=== PATIENT | female | born 1965 | race Caucasian/White ===

== ENCOUNTER 2019-09-06 12:57 | Outpatient (REF) | payer BC, SELFPAY ==
--- NOTE | 2019-09-06 11:45 | PAPFT_PTH ---
PATIENT: Lisa Atkinson LOC: [facility]#:[id number] AGE/SX: 53/F ROOM: RE09/06/[address]: Sendy Linares : 1965 BED: DIS: 09/06/2019 SPEC #: [id number] RECD: 09/07/19 12:40 STATUS: CHRISTY RENohemi #: [id number] HARMONY: 09/06/19 11:[address]: Alejandrina Sherwood DEPT: [facility] Cytology RECD BY: Cookie Nelson Tissues: 1 - CX/ENDOCX FOR PAP SMEARS Procedures: PAP THIN PREP/UVM Screening HPV DNA PROBE Comments: [id number]
[2019-09-06 20:56] LABS: Hemoglobin A1C 5.8 % (3.8-5.6)
[2019-09-06 21:07] LABS: Calculated LDL 155 mg/dL (<100); Cholesterol 233 mg/dL (<200); HDL Cholesterol 69 mg/dL (40-60); TSH (W/Ref FT4) 1.57 uIU/mL (0.36-3.74); Triglyceride 48 mg/dL (<150)
[2019-09-08 10:57] LABS: Hepatitis C Ab w Rflx HCV PCR Negative (Negative)
== END 2019-09-06 13:17 ==
LOC: NCHCN 12:57
PROVIDERS: PCP Nurse Practitioner Family; Visit Provider Family Medicine
DX: Z12.4 Encounter for screening for malignant neoplasm of cervix (principal); Z01.419 Encounter for gynecological examination (general) (routine) without abnormal findings; Z11.51 Encounter for screening for human papillomavirus (HPV); Z00.00 Encounter for general adult medical examination without abnormal findings; R05 Cough; N95.1 Menopausal and female climacteric states; N39.490 Overflow incontinence; M54.5 Low back pain; R21 Rash and other nonspecific skin eruption; J30.1 Allergic rhinitis due to pollen; Z83.3 Family history of diabetes mellitus
CPT/HCPCS: 80061; 86803; 88142; 83036; 84443; 87624

== ENCOUNTER 2019-10-06 01:05 | Outpatient (CLI) | payer BC, SELFPAY ==
--- NOTE | 2019-10-06 11:45 | DI.MAMMO_ITS ---
EXAM: MG MAMMO SCREENING CLINICAL HISTORY: SCREENING, Z12.31 TECHNIQUE: Bilateral full field digital CC and MLO mammographic images were obtained with 3D tomosyn thesis and utilizing computer aided detection (CAD). COMPARISON: Available for comparison. FINDINGS: Masses/Architectural Distortion: None seen. Microcalcifications: No suspicious pleomorphic-type are seen. Skin Thickening/Nipple Retraction: None. IMPRESSION: 1. No significant interval change with no specific features of malignancy noted. 2. Unless there is more urgent need, screening mammography is recommended, as per [employer] guidelines. BI-RADS Cat 1 - Negative Breast Density - Category B - Scattered areas of fibroglandular density A negative radiographic report should not delay biopsy if a dominant or clinically suspicious mass is present. Up to ten percent of cancers are not identified on mammography. A negative report may reinforce clinical impression. Adenosis and dense breasts may obscure an underlying neoplasm. False positive reports average 6 to 10%. Patient will receive a letter notifying them of these results.
== END 2019-10-06 01:25 ==
PROVIDERS: PCP Nurse Practitioner Family; Visit Provider Nurse Practitioner Family
DX: Z12.31 Encounter for screening mammogram for malignant neoplasm of breast (principal)
CPT/HCPCS: 77063; 77067

== ENCOUNTER 2020-06-29 03:54 | Outpatient (CLI) | payer BC, SELFPAY ==
--- NOTE | 2020-06-29 06:45 | DI.US_ITS ---
EXAM: US PELVIS TRANSVAGINAL CLINICAL HISTORY: pelvic prolapse,CYSTOCELE,ENDOMETRIOSIS,N80.9,N81.2. TECHNIQUE: Transabdominal and transvaginal pelvic ultrasound was performed using standard protocol. COMPARISON: US PELVIS TRANSVAG from 07/09/2010 FINDINGS: KIDNEYS: Kidneys are symmetric in size. No evidence of renal calculi. No evidence of hydronephrosis. No renal mass or cyst identified. UTERUS: Position: Anteverted. Size: 5.6 long by 2.7 AP by 4.2 transverse cm Endometrium: 0.3 cm. Normal for patient's menstrual status. Myometrium: Unremarkable. Cervix: Unremarkable. OVARIES: Status post right oophorectomy. Left: 1.7 x 1.2 x 1.3 cm Cyst or mass: None. DOPPLER: Color: Symmetric and uniform flow to the left ovary. No hyperemia. CUL-DE-SAC: Free fluid: None. Other: None. IMPRESSION: 1. Normal sonographic appearance of the kidneys. 2. Normal-appearing uterus with endometrial stripe within normal limits. 3. Status post right oophorectomy. Unremarkable left ovary. DATA REPOSITORY:
== END 2020-06-29 04:14 ==
PROVIDERS: PCP Nurse Practitioner Family; Visit Provider Obstetrics & Gynecology
DX: N80.9 Endometriosis, unspecified (principal); N81.2 Incomplete uterovaginal prolapse; Z90.721 Acquired absence of ovaries, unilateral
CPT/HCPCS: 76830; 76856

== ENCOUNTER 2020-09-28 02:05 | Outpatient (CLI) | payer BC, SELFPAY ==
[2020-09-28 11:20] LABS: Source Nasal/Nares
[2020-09-28 17:06] LABS: COVID-19 PCR Negative (Negative)
== END 2020-09-28 02:06 | disposition home or self-care (01) ==
LOC: LBO 02:05
PROVIDERS: Obstetrics & Gynecology Gynecology; PCP Nurse Practitioner Family; Visit Provider Obstetrics & Gynecology
DX: Z20.822 Contact with and (suspected) exposure to COVID-19 (principal); Z01.818 Encounter for other preprocedural examination
CPT/HCPCS: 87635; U0003

== ENCOUNTER 2020-09-28 02:08 | Outpatient (CLI) | payer BC, SELFPAY ==
[2020-09-28 10:43] LABS: HCT 39.3 % (36.0-46.0); HGB 13.4 g/dL (11.2-15.7); MCH 30.9 pg (27.0-33.0); MCHC 34.1 % (32.0-36.0); MCV 90.8 fL (80-95); MPV 10.1 fL (8.0-11.0); Platelet Count 211 10^3/uL (130-400); RBC 4.33 10^6/uL (3.93-5.22); RDW 13.4 % (11.7-14.6); RDW-SD 45.4 fL; WBC 4.23 10^3/uL (4.4-10.8)
== END 2020-09-28 02:09 | disposition home or self-care (01) ==
LOC: LBO 02:08
PROVIDERS: Obstetrics & Gynecology Gynecology; PCP Nurse Practitioner Family; Visit Provider Obstetrics & Gynecology
DX: N81.2 Incomplete uterovaginal prolapse (principal); N39.46 Mixed incontinence; Z01.818 Encounter for other preprocedural examination; Z01.812 Encounter for preprocedural laboratory examination
CPT/HCPCS: 36415; 85027; 86850; 86900; 86901

== ENCOUNTER 2020-10-03 12:00 | Inpatient (IN) | payer BC, SELFPAY ==
[2020-10-03] VITALS (20 sets, daily range): BP systolic 85–117; BP diastolic 34–77; PULSE 54–73; RESP 12–18; TEMP 35.8–36.7; O2SAT 96–100
[2020-10-03] MEDS: Lactated Ringers 1,000 ML 125 ML IV ×3 (08:15→14:15)
[2020-10-03] MEDS: ceFAZolin 2 GM/50 ML BAG IVPB (09:37)
[2020-10-03] MEDS: Bupivacaine 0.5% Pres-Free 30 ML VIAL (10:16)
--- NOTE | 2020-10-03 10:48 | UTER_PTH ---
PATIENT: Lisa Atkinson LOC: [facility]#:[id number] AGE/SX: 55/F ROOM: OBS.306 RE10/03/[address]: Rama Denny DO : 1965 BED: A DIS: 10/04/2020 SPEC #: [id number] RECD: 10/03/20 12:53 STATUS: SOUT REQ #: [id number] HARMONY: 10/03/20 10:[address]: Rama Denny DEPT: Surgical Specimen RECD BY: Cookie Nelson ENTERED: 10/03/20 12:54 SP TYPE: UTER OTHR DR: Alejandrina Sherwood Tissues: 1 - UTERUS W OR W/O OVARIES(NOT TUMOR/PROLAPSE) 2 - APPENDIX INCIDENTAL Procedures: GROSS AND MICRO LEVEL 4 GROSS AND MICRO LEVEL 3 Comments: [id number]
--- NOTE | 2020-10-03 12:03 | W.PM.OP ---
Date of service: 10/03/20 Time of Service: 12:03 Operative Note Operative Note DATE OF PROCEDURE: 10/03/20 PRE-OP DIAGNOSIS: Symptomatic pelvic organ prolapse POST-OP DIAGNOSIS: other (Firm, abnormal appearing appendix) PROCEDURE: Laparoscopically assisted vaginal hysterectomy, left salpingectomy. Cautery of pelvic endometriosis. Torrez's culdoplasty. Uterosacral ligament suspension. Cystoscopy. Appendectomy per Dr. Mcduffie SURGEON: Rama Denny ASSISTING SURGEON: Amira Frye DIVISION MERCHANDISE MANAGER: Rosa Mcduffie ANESTHESIA TYPE: General LMA/ETT and Spinal Refer to Anesthesia Record ESTIMATED BLOOD LOSS: 100 PATHOLOGY: other (1. Left fallopian tube, uterus, cervix 2. Appendix) COMPLICATIONS: None Patient was transported to: PACU Patient's condition: stable Indications: Symptomatic pelvic organ prolapse Findings: Small, freely mobile uterus with grade 2 uterine prolapse. Surgical absence of the right fallopian tube and ovary. Thickened, firm appendix, clinically suspicious for chronic appendicitis. Endometriosis implant at the left uterosacral cardinal complex. Grade 1 cystocele. Procedure Description: Patient is a 55-year-old female with a known history of pelvic organ prolapse. She has been having issues with uterine prolapse along with symptomatic cystocele. She had full and thorough evaluation including endometrial sampling, pelvic ultrasound, consultation with urology for the possibility of a mid urethral sling placement. She declined mid urethral sling placement and requested definitive therapy for her pelvic organ prolapse. The risks, benefits, and alternatives of the procedure including risk of infection, bleeding, injury to surrounding organs, failure with recurrence of prolapse symptoms, risk of thromboembolism, risk of anesthesia, risk of need for open laparotomy were all explained to patient in full informed consent was obtained. She is taken the operating suite with an IV running. She is placed in the seated position and spinal anesthesia administered for postoperative pain control. At this point she was placed in the dorsal supine position and endotracheal intubation performed for the administration of general anesthesia with ease. She was then placed in the modified dorsolithotomy position and prepped and draped in the usual sterile fashion. Torres catheter was inserted for continuous bladder drainage. She was noted to have minimal urethral caruncle, grade 2 uterine prolapse, grade 1 cystocele, and minimal rectocele. No enterocele was noted. At this point speculum was placed into the vaginal vault and a [employer] uterine manipulator placed within the uterine cavity for uterine manipulation. Speculum was then removed and attention was turned to the abdomen. After infiltration of half percent Marcaine an umbilical incision was made. Anterior felipa wall was elevated. Gastric contents had been drained. A varies needle was inserted into the abdomen and CO2 gas used to create in a pneumoperitoneum with a maximum pressure of 15 mmHg. At this point a bladeless Visiport with a 10 mm scope were used to insert into the abdomen directly. Abdomen was visualized and found to be atraumatic. A second and third right and left lower quadrant trocar site was placed after infiltration of Marcaine. At this point the uterus was elevated. There is noted to be surgical absence of the right fallopian tube and right ovary. Left fallopian appeared tube appeared normal. Left ovary was atrophic appearing and normal. There was a small amount of endometriosis implant at the left uterosacral cardinal complex. On inspection of the abdomen pelvis otherwise ureters were seen to be peristalsing appropriately. At this point inspection of the appendix was undertaken and it was noted to be firm, indurated, and within the surgical field. Intraoperative consultation with general surgery, Dr. Mcduffie was performed. Recommendation was for removal. At this point, patient's was notified via telephone to inform him of the findings and he also concurred with the removal of her appendix due to this situation. At this point attention was turned to the left fallopian tube which was elevated and cautery transected and removed through the 10 mm port. The left round ligament was identified cautery transected and ligated allowing opening of the broad ligament. The anterior leaf of the broad ligament was meticulously sharply sharply dissected down to the vesicouterine peritoneum. The uterine artery and vein were identified on the left which were cauterized. At this point attention was turned to the remnant of the right round ligament which was cautery transected and ligated allowing visualization of the broad ligament. The anterior leaf of the broad ligament again was elevated for creation of the remainder of the bladder flap. At this point the right uterine artery and vein were also cautery ligated. At this point all pedicles were inspected and found to be hemostatic. Attention was then turned to the vaginal vault after discontinuation of pneumoperitoneum. Weighted speculum was placed in the posterior vaginal vault and with Bovie cautery in a circumferential fashion the cervical vaginal interface was incised. The posterior cul-de-sac was identified and entered sharply and the right and left uterosacral cardinal complexes were clamped x2 and ligated. Attention was then turned to the anterior cul-de-sac which was entered sharply. The remainder of the uterine pedicles were clamped transected and ligated allowing delivery of the uterus through the vaginal opening. Posterior there is some mild amount of relaxation and a Torrez's culdoplasty was performed with 0 Vicryl suture. This corrected any posterior compartment deficit. The uterosacral cardinal complexes were again identified and with a free needle uterosacral cardinal ligament suspension performed with placement of the uterosacral stitch through the vaginal apices laterally. At this point the anterior portion of the vagina was reapproximated with Endo with solid-appearing endopelvic fascia and the vaginal cuff closed in a vertical fashion with 0 Vicryl in a running stitch. Uterosacral cardinal complex ligaments were then tied and suspension of the vaginal vault was performed with good result. This completed the vaginal portion of the procedure. At this point attention was returned to the abdomen where CO2 gas was recreated and pedicles inspected and found to be hemostatic. Ureters were noted to be peristalsing appropriately in the pelvis. And at this point Dr. Mcduffie was called for completion of appendectomy. Please see her note for operative portion of appendectomy. Upon completion of appendectomy again all pedicles were inspected. CO2 gas was diminished to 5 mm there was 1 area at the vaginal cuff which was noted to have a single arterial small area of bleeding. This was grasped with a clip and found to be hemostatic. Pneumoperitoneum was recreated and all pedicles were inspected. Again the pneumoperitoneum was released to 5 mm and the cuff, and all pedicles were quite hemostatic. Patient received indigo carmine intravascularly and cystoscopy performed. With cystoscope, the entire bladder was inspected and found to be atraumatic. Both ureteric orifices were identified and jets of blue urine from each identified. This completed the cystoscope portion of the procedure. Fascial incision at the umbilicus was closed using 0 Vicryl suture and skin edges reapproximated with 4-0 undyed Monocryl and Steri-Strips along with sterile dressings were placed. EBL: 100 mL Complications: None apparent Pathology: 1. Left fallopian tube, uterus, cervix. 2. Appendix. Fluids: Crystalloid per anesthesia
[2020-10-03] MEDS: ePHEDrine 50 MG/ML VIAL IVP (13:00)
--- NOTE | 2020-10-03 15:35 | ROE_ITS ---
Date of service: 10/03/20 Time of Service: 15:35 Operative Note Operative Note DATE OF PROCEDURE: 10/03/20 PRE-OP DIAGNOSIS: rectocele/cystocele POST-OP DIAGNOSIS: other (Firm, abnormal appearing appendix) PROCEDURE: laparoscopic Appendectomy SURGEON: Rosa Mcduffie ASSISTING SURGEON: Rama Denny SOCIAL SCIENCE PROFESSOR: Rosa Mcduffie ANESTHESIA TYPE: General LMA/ETT Refer to Anesthesia Record ESTIMATED BLOOD LOSS: 100 PATHOLOGY: other (1. Left fallopian tube, uterus, cervix 2. Appendix) COMPLICATIONS: None Patient was transported to: PACU Patient's condition: stable Indications: I was asked to come into the Operating room while Dr. Denny and Dr. Solis were starting their surgery. The appendix was noted to be dilated and firm in the middle. Recommendation was made to remove the appendix. Dr. Denny did speak to the patients and he consented to the removal of her appendix Findings: dilated appendix with palpable fecolith Procedure Description: I came into the OR after Dr. Denny finished the hysterectomy. The patient's bed was then turned to the left head down allowing me to sweep of the small bowel out of the right lower quadrant. The cecum was gently grasped and the appendix was identified. The appendix looked thickened and there was a palpable fecolith. The cecum was noted to be redundant and in the pelvis. The appendix was grasped at the neck and pulled up slightly allowing me to visualize the junction with the cecum. Using the laparoscopic LigaSure the mesoappendix was slowely transected. Once the meso-appendix was transected, using a laparoscopic straight stapler the appendix was transected at the junction with the cecum. The appendix was placed into an Endo Catch bag and removed through the 11 mm port site. The port was placed back into the abdomen and the staple line was identified. No bleeding was noted. The transected mesentery was identified and no bleeding was noted. I then left the OR and Dr. Denny finished the case. The patient was woken up extubated and taken back to recovery room in stable condition. There were no immediate complications. Sponge instrument needle counts were correct at the end of the case x2.
--- NOTE | 2020-10-03 17:02 | W.PM.PROGNOT ---
Date of Service Date of service: 10/03/20 Time of Service: 17:02 Assessment and Plan Assessment and plan (1) S/P appendectomy: Status: Acute (2) S/P laparoscopic assisted vaginal hysterectomy (LAVH): Status: Acute Assessment and plan: Patient is postoperative day #0 status post laparoscopically assisted vaginal hysterectomy left salpingectomy cautery of endometriosis, Torrez's culdoplasty, uterosacral ligament suspension, cystoscopy, and appendectomy. She is doing well. I would anticipate a routine postoperative course. She has a CBC pending for the morning. Her Torres catheter will be removed she will be saline locked this evening. She will continue to ambulate, eat as desired. Potential discharge home in the morning. Subjective Subjective Patient reports: no new complaints, tolerating a regular diet, no flatus and afebrile; denies diarrhea, nausea and vomiting Interval history since last seen: Patient seen postoperative day #0. Surgical findings along with appendectomy explained to the patient today. She is comfortable, has no pain, has stable vital signs, and is tolerating a regular diet. She has been ambulating and her Torres catheter will be removed this evening. Exam Const General: healthy appearing, comfortable and no acute distress Orientation: alert and oriented x3 Eyes General: appearance normal, both eyes and all related structures Resp Effort & Inspection: normal respiratory effort Cardio Rate: regular rate Rhythm: regular rhythm GI Palpation: soft, not firm and no guarding Neuro General: patient alert, patient awake and patient oriented x3 Extrem General: normal to inspection, no clubbing, cyanosis or edema and calf tenderness Objective Last Vital Signs Temp 96.4 F L 10/03/20 16:14 Pulse 64 10/03/20 16:14 Resp 16 10/03/20 16:14 BP 101/63 10/03/20 16:14 Pulse Ox 98 10/03/20 16:14
[2020-10-03] MEDS: Normal Saline Flush 10 ML SYR IV (19:14)
[2020-10-03] MEDS: Ketorolac 15 MG/ML VIAL IVP (19:14)
[2020-10-03] MEDS: Calcium Carbonate *TUMS* 500 MG CHEW (22:38)
[2020-10-04 00:21] VITALS: BP 103/59; PULSE 67; RESP 19; TEMP 37; O2SAT 97
[2020-10-04] MEDS: Ketorolac 15 MG/ML VIAL IVP ×2 (00:33→06:09)
[2020-10-04] MEDS: diphenhydrAMINE 25 MG CAP PO (00:33)
[2020-10-04] MEDS: Docusate Sodium 100 MG CAP PO (00:33)
[2020-10-04] MEDS: Normal Saline Flush 10 ML SYR IV ×2 (00:34→06:10)
[2020-10-04 05:39] LABS: Abs Immature Grans 0.01 10^3/uL (0.0-0.06); Absolute Basophil Count 0.01 10^3/uL (0.0-0.2); Absolute Eosinophil Count 0.05 10^3/uL (0.0-0.7); Absolute Lymphocyte Count 1.77 10^3/uL (1.2-3.4); Absolute Monocyte Count 0.68 10^3/uL (0.1-0.8); Absolute Neutrophil Count 4.11 10^3/uL (1.2-6.7); Basophils % 0.2; Eosinophils % 0.8; HCT 31.4 % (36.0-46.0); HGB 10.7 g/dL (11.2-15.7); Immature Grans % 0.2; Lymphocytes % 26.7; MCHC 34.1 % (32.0-36.0); MPV 9.7 fL (8.0-11.0); Monocytes % 10.3; Neutrophils % 61.8; Nucleated RBC 0 %; Platelet Count 158 10^3/uL (130-400); RBC 3.45 10^6/uL (3.93-5.22); RDW 13.4 % (11.7-14.6); RDW-SD 44.7 fL; WBC 6.63 10^3/uL (4.4-10.8)
[2020-10-04 05:46] VITALS: BP 92/57; PULSE 63; TEMP 36.8
[2020-10-04 07:25] VITALS: BP 96/55; PULSE 66; RESP 16; TEMP 36.7; O2SAT 95
--- NOTE | 2020-10-04 08:10 | W.PM.PROGNOT ---
Date of Service Date of service: 10/04/20 Time of Service: 08:10 Assessment and Plan Assessment and plan (1) S/P laparoscopic assisted vaginal hysterectomy (LAVH): Status: Acute Assessment and plan: Postoperative day #1 status post laparoscopically assisted vaginal hysterectomy and left salpingectomy, cautery of endometriosis, uterosacral ligament suspension, appendectomy. Patient had postoperative urinary retention. My impression is that this is due to her spinal anesthesia. Torres catheter was inserted which was discontinued this morning. If she is able to void spontaneously, she will be discharged home today with oral pain medication with follow-up in approximately 2 weeks Subjective Subjective Patient reports: no new complaints, feels better, tolerating a regular diet and flatus; denies bowel movement, nausea, vomiting and fever Interval history since last seen: Patient seen and examined this morning postoperative day #1. She was unable to void spontaneously last night and Torres catheter was reinserted. She is having no pain, no fevers or chills. She has been tolerating a regular diet, passing flatus, and has stable vital signs. Plan would be to discontinue the Torres catheter this morning. I do believe that this is related to spinal anesthesia. Once she is able to void, she will be able to be discharged to home. Exam Const General: cooperative, healthy appearing, comfortable, no acute distress and well developed Orientation: alert and oriented x3 Eyes General: appearance normal, both eyes and all related structures Resp Effort & Inspection: normal respiratory effort, no audible wheezes, no cough and not labored Cardio Rate: regular rate Rhythm: regular rhythm GI Inspection: normal to inspection and incision (Band-Aids removed, minimal ecchymosis. Steri-Strips are in place.) Palpation: not firm and no guarding Auscultation: normal bowel sounds Skin General skin exam: no rashes or lesions noted Extrem General: normal to inspection, no pedal edema and no calf tenderness Psych Appearance: grossly normal Mental Status: mental status grossly normal Speech and Movement: speech and movement normal Affect: normal affect Objective Last Vital Signs Temp 98.1 F 10/04/20 07:25 Pulse 66 10/04/20 07:25 Resp 16 10/04/20 07:25 BP 96/55 L 10/04/20 07:25 Pulse Ox 95 10/04/20 07:25 Laboratory Results - last 24 hr 10/04/20 05:33 WBC 6.63 RBC 3.45 L Hgb 10.7 L Hct 31.4 L MCV 91.0 MCH 31.0 MCHC 34.1 RDW 13.4 Plt Count 158 MPV 9.7 Immature Gran % 0.2 Neutrophils % 61.8 Lymphocytes % 26.7 Monocytes % 10.3 Eosinophils % 0.8 Basophils % 0.2 Nucleated RBC % 0 Absolute Neutrophils 4.11 Absolute Lymphocytes 1.77 Absolute Monocytes 0.68 Absolute Eosinophils 0.05 Absolute Basophils 0.01
--- NOTE | 2020-10-04 08:17 | W.PM.DS.N ---
Date of service: 10/04/20 Time of Service: 08:17 DS: Diagnosis Discharge Diagnosis (1) S/P laparoscopic assisted vaginal hysterectomy (LAVH): Status: Acute Discharge Plan Disposition Patient Disposition: HOME Condition: Good Discharge Details Reason For Visit: LAVH, APPENDECTOMY Admit Date/Time: 10/03/20 12:00 Admit Provider: Rama Denny Attending Provider: Rama Denny Primary Care Provider: Alejandrina Sherwood Hospital Course Hospital Course: Patient underwent laparoscopically assisted vaginal hysterectomy left salpingectomy cautery of endometriosis, cystoscopy, Torrez's culdoplasty, uterosacral ligament suspension, and appendectomy. She had a routine postoperative course. She did have some postoperative urinary retention which is most likely due to her spinal. Caceres was reinserted and then discontinued. She is ambulating, tolerating a regular diet and oral pain medication with stable vital signs. Hemoglobin is stable at 10.7. She will be discharged home today Home Meds and New Rx's Prescriptions: New Acetaminophen [Tylenol] 1,000 mg PO Q6H PRN PRNQty: 30 RF: 0 docusate sodium 100 mg capsule 100 mg PO BID PRN PRN (Reason: Constipation) Qty: 30 RF: 0 oxycodone-acetaminophen 5-325 mg Tablet 1 tab PO Q4H PRN PRNQty: 6 RF: 0 ibuprofen [IBU] 600 mg Tablet 600 mg PO Q6H PRN PRNQty: 60 RF: 1 Continued estradiol 0.01 % (0.1 mg/gram) cream 1 g vaginal .COMPLEX Qty: 42.5 RF: 2 multivitamin [Daily Multi-Vitamin] 1 EACH tablet 1 ea PO DAILY RF: 0 calcium carb and citrate-vitD3 1 EACH tablet extended release 1 ea PO DAILY RF: 0 [id number]-[id number]-Vieuhpwgk serr [Osteo Bi-Flex (5-Loxin)] 1 EACH tablet 1 ea PO DAILY RF: 0 Estroven Maximum Strength 400 MCG tablet 400 mcg PO BID RF: 0 Mwwwhxdey-Tungksbneh-Gwgybqg C 1 EACH tablet 1 ea PO BID RF: 0 [id number]-zeirqqh-ast [krill oil] 1 EACH capsule 1 ea PO DAILY RF: 0 turmeric 400 mg Capsule 1,000 mg PO DAILY RF: 0 ibuprofen 600 mg Tablet 600 mg PO Q6H PRNRF: 0 Discharge Instructions Additional Instructions: No heavy lifting greater than 10 pounds. Follow-up in 2 and 6 weeks. Stand Alone Forms: DSU Post Gynecology Surgery Activity:: Pelvic rest Equipment/Supplies:: No Equipment Needed Diet:: As Tolerated Discharge Orders Discharge Orders: Discharge Order (Routine); Ordered 10/04/20 Ordered By: Rama Denny DS: Summary Time Spent with Patient providing and/or coordinating discharge services: Less than 30 minutes Status at Discharge Functional status at discharge: independent ambulation Overall status at discharge: patient is progressing back to baseline Mental Status: mental status grossly normal Speech and Movement: speech and movement normal Mood: congruent mood Affect: normal affect Exam Narrative Exam Narrative: Please see examination from progress note dated 10/04/2020 Psych Mental Status: mental status grossly normal Speech and Movement: speech and movement normal Mood: congruent mood Affect: normal affect DS: Data Vitals/I&O Vitals and I&O: Vital Signs Temperature 98.1 F 10/04/20 07:25 Temperature Source Oral 10/04/20 07:25 Pulse 66 10/04/20 07:25 Pulse Rhythm Regular 10/04/20 07:25 Respiratory Rate 16 10/04/20 07:25 Respiratory Effort Non-Labored 10/04/20 07:25 Respiratory Depth Normal 10/04/20 07:25 Respiratory Pattern Normal 10/04/20 07:25 Blood Pressure 96/55 L 10/04/20 07:25 Blood Pressure Mean 60 10/03/20 13:06 Blood Pressure Position Supine 10/03/20 13:06 Pulse Oximetry 95 10/04/20 07:25 Respiratory End-tidal CO2 36 10/03/20 13:39 Oxygen Delivery Method Room Air 10/04/20 07:25 Oxygen Flow Rate 0 10/04/20 07:25 Pain Level 0 10/04/20 07:25 Comment 10/03/20 13:06 Intake & Output 10/03/20 10/03/20 10/04/20 11:59 23:59 11:59 Intake Total 1050 / 3543.75 2493.75 / 3543.75 1600 / 1600 Output Total 600 / 1000 400 / 1000 1100 / 1100 Balance 450 / 2543.75 2093.75 / 2543.75 500 / 500 Weight 150 lb 12.739 oz Intake: IV 1050 / 1743.75 693.75 / 1743.75 Oral 1800 / 1800 1600 / 1600 Output: Urine 600 / 1000 400 / 1000 1100 / 1100 Other: Urine Color Indigo Green Yellow Urine Appearance Sediment Clear Urine Odor None Comment per MD can take caceres out per pt request. Pt requested caceres be d/c'd Emesis Description None Voiding Methods Indwelling Catheter Data Completed and Pending Labs on day of discharge: Labs from last 24 hours 10/04/20 05:33 WBC 6.63 RBC 3.45 L Hgb 10.7 L Hct 31.4 L MCV 91.0 MCH 31.0 MCHC 34.1 RDW 13.4 Plt Count 158 MPV 9.7 Immature Gran % 0.2 Neutrophils % 61.8 Lymphocytes % 26.7 Monocytes % 10.3 Eosinophils % 0.8 Basophils % 0.2 Nucleated RBC % 0 Absolute Neutrophils 4.11 Absolute Lymphocytes 1.77 Absolute Monocytes 0.68 Absolute Eosinophils 0.05 Absolute Basophils 0.01 PFSH Medical History Endometriosis History of postoperative nausea and vomiting Mixed incontinence bladder not where it is supposed to be Surgical History Hx of carpal tunnel repair Oophrectomy, Right (~07/2010) R salpingo oophrectomy,L ovarian cystectomy for bilateral endometiomas S/P appendectomy S/P laparoscopic assisted vaginal hysterectomy (LAVH) Family History Mother Dementia Father Heart disease Social History Smoking/Tobacco Use Status: Never Smoking risk assessment performed?: Yes Drug use: Never Substance use type: does not use Details: alcohol: t-1 Do you feel safe at home: Yes Do you feel safe in your relationship?: Yes
== END 2020-10-04 13:25 | disposition home or self-care (01) | DRG 743 ==
LOC: OBS 14:44
PROVIDERS: Surgery; Admitting Provider Obstetrics & Gynecology; PCP Nurse Practitioner Family; Visit Provider Obstetrics & Gynecology
PROC: 0UT9FZZ Resection of Uterus, Via Natural or Artificial Opening With Percutaneous Endoscopic Assistance (ICD-10-PCS; CPT 58552; principal; 2020-10-03 09:00)
PROC: 0UT9FZZ Resection of Uterus, Via Natural or Artificial Opening With Percutaneous Endoscopic Assistance (ICD-10-PCS; CPT 57260; 2020-10-03 09:00)
PROC: 0DTJ4ZZ Resection of Appendix, Percutaneous Endoscopic Approach (ICD-10-PCS; CPT 44970; 2020-10-03 09:00)
DX: N81.89 Other female genital prolapse (principal); N80.3 Endometriosis of pelvic peritoneum; N39.46 Mixed incontinence; K38.1 Appendicular concretions
CPT/HCPCS: 44970; 58552; 58662; 57268; 52000; 88305; 99232; 99238; 85025; 88302; 88304; 88307; J0131; J0690; J1100; J1200; J1885; J2001; J2250; J2405; J3010

== ENCOUNTER 2020-10-04 19:01 | Inpatient (IN) | payer BC, SELFPAY ==
[2020-10-04] VITALS (20 sets, daily range): BP systolic 101–137; BP diastolic 58–66; PULSE 68–85; RESP 15–23; TEMP 36.3–37.1; O2SAT 93–97
--- NOTE | 2020-10-04 19:16 | ED.GENADUL_ITS ---
Discharge Plan Disposition Patient Disposition: [facility] INPATIENT Condition: Serious Discharge Details Chief Complaint: GenMedical Clinical Impression: Hyponatremia, Hypomagnesemia, Acute dehydration Primary Care Provider: Alejandrina Sherwood ED Provider: Anish Jhaveri Home Meds and New Rx's Prescriptions: No Action estradiol 0.01 % (0.1 mg/gram) cream 1 g vaginal .COMPLEX Qty: 42.5 RF: 2 multivitamin [Daily Multi-Vitamin] 1 EACH tablet 1 ea PO DAILY RF: 0 calcium carb and citrate-vitD3 1 EACH tablet extended release 1 ea PO DAILY RF: 0 ucncabqhmgi-B5-Wwgspaova serr [Osteo Bi-Flex (5-Loxin)] 1 EACH tablet 1 ea PO DAILY RF: 0 Estroven Maximum Strength 400 MCG tablet 400 mcg PO BID RF: 0 Xxgbhcqre-Lmzbfjzalf-Afyfmkz C 1 EACH tablet 1 ea PO BID RF: 0 bmplv-ya-1-dex-veo-btmhaei-ast [krill oil] 1 EACH capsule 1 ea PO DAILY RF: 0 turmeric 400 mg Capsule 1,000 mg PO DAILY RF: 0 ibuprofen 600 mg Tablet 600 mg PO Q6H PRNRF: 0 Acetaminophen [Tylenol] 1,000 mg PO Q6H PRN PRNQty: 30 RF: 0 docusate sodium 100 mg capsule 100 mg PO BID PRN PRN (Reason: Constipation) Qty: 30 RF: 0 oxycodone-acetaminophen 5-325 mg Tablet 1 tab PO Q4H PRN PRNQty: 6 RF: 0 ibuprofen [IBU] 600 mg Tablet 600 mg PO Q6H PRN PRNQty: 60 RF: 1 Medical Decision Making 55-year-old female presents 1 day status post laparoscopically assisted vaginal hysterectomy left salpingectomy cautery of endometriosis, cystoscopy, Torrez's culdoplasty, uterosacral ligament suspension, and appendectomy with nausea and vomiting today. Labs reviewed to assess for electrolyte abnormalities reveal hyponatremia 120, hypomagnesemia 1.4. Patient appears dehydrated. She was initially given LR 1 L bolus. We will continue D5 LR at 150 and also administered magnesium 1 g IV. I called and spoke with Dr. Denny, on-call county program technician, discussed ED presentation course and she recommended admission to hospitalist service and she will consult. I spoke with Dr. Drake, on-call hospitalist, discussed ED presentation and course including diagnostics and treatment, he will admit the patient for correction of electrolytes. HPI General Mode of arrival: ambulatory . Date/Time Provider Initiated Documentation: 10/04/20 19:14 . Limitations to Documentation: no limitations . Information obtained by: patient . HPI Narrative: 55-year-old female presents 1 day status post laparoscopic assisted hysterectomy, appendectomy, here with general malaise. Patient notes she generally has not been feeling well since discharge earlier today. She notes she vomited twice and has not been able to keep anything down. She has mild nausea now. Generalized weakness. She denies pain. No fever. Related Data Home Medications Medication Instructions Recorded Confirmed calcium carb and citrate-vitD3 1 ea PO DAILY 01/02/14 10/04/20 vdpiyeanurf-S4-Kcawqofcg serr 1 ea PO DAILY 01/02/14 10/04/20 [Osteo Bi-Flex (5-Loxin)] multivitamin [Daily Multi-Vitamin] 1 ea PO DAILY 01/02/14 10/04/20 Aalhcleod-Ipbqoacgkv-Bsiqkua C 1 ea PO BID 04/10/16 10/04/20 Estroven Maximum Strength 400 mcg PO BID 04/10/16 10/04/20 mhdxw-kt-8-pev-vqf-hwsatai-ast 1 ea PO DAILY 04/10/16 10/04/20 [krill oil] estradiol 1 g VAGINAL .COMPLEX #42.5 g 06/06/20 10/04/20 turmeric 1,000 mg PO DAILY 10/01/20 10/04/20 ibuprofen 600 mg PO Q6H PRN 10/03/20 10/03/20 Acetaminophen [Tylenol] 1,000 mg PO Q6H PRN PRN #30 tab 10/04/20 10/04/20 docusate sodium 100 mg PO BID PRN PRN #30 cap 10/04/20 10/04/20 ibuprofen [IBU] 600 mg PO Q6H PRN PRN #60 tab 10/04/20 10/04/20 oxycodone-acetaminophen 1 tab PO Q4H PRN PRN #6 tab 10/04/20 Previous Rx's Medication Instructions Recorded estradiol 1 g VAGINAL .COMPLEX #42.5 g 06/06/20 Acetaminophen [Tylenol] 1,000 mg PO Q6H PRN PRN #30 tab 10/04/20 docusate sodium 100 mg PO BID PRN PRN #30 cap 10/04/20 ibuprofen [IBU] 600 mg PO Q6H PRN PRN #60 tab 10/04/20 oxycodone-acetaminophen 1 tab PO Q4H PRN PRN #6 tab 10/04/20 Allergies Allergy/AdvReac Type Severity Reaction Status Date / Time oxycodone HCl [From Percocet] AdvReac Intermediate Nausea, Unverified 10/04/20 19:11 vomiting fabric softner Allergy Mild Skin Rash Uncoded 10/04/20 19:11 environmental Allergy Uncoded 10/04/20 19:11 General Stated Complaint: GenMedical AARON: 3 Review of Systems All systems reviewed & are unremarkable except as noted in HPI and below Constitutional Constitutional: Reports as per HPI Cardiovascular Cardiovascular: Denies chest pain PFSH Medical History Endometriosis History of postoperative nausea and vomiting Mixed incontinence bladder not where it is supposed to be Surgical History Hx of carpal tunnel repair Oophrectomy, Right (~07/2010) R salpingo oophrectomy,L ovarian cystectomy for bilateral endometiomas S/P appendectomy S/P laparoscopic assisted vaginal hysterectomy (LAVH) Family History Mother Dementia Father Heart disease Social History Smoking/Tobacco Use Status: Never Smoking risk assessment performed?: Yes Drug use: Never Substance use type: does not use Details: alcohol: t-1 Do you feel safe at home: Yes Do you feel safe in your relationship?: Yes Exam Const General: cooperative and no acute distress Other: Fatigued appearing HENMT Other: Dry mucous membrane Eyes Conjunctivae: normal conjunctivae Sclera: normal sclerae Resp Auscultation: clear to auscultation bilaterally, no rales, no rhonchi and no wheezes Cardio Rate: regular rate and not tachycardic Rhythm: regular rhythm GI Inspection: non-distended Palpation: soft, not firm, no guarding, no masses and not rigid Auscultation: hypoactive bowel sounds Skin General skin exam: no rashes or lesions noted Neuro General: patient alert, patient awake, patient oriented x3 and tone normal Extrem General: no edema Psych Appearance: grossly normal Mental Status: mental status grossly normal Course Vital Signs Vital signs: Vital Signs Temperature 37.1 C 10/04/20 19:06 Pulse 75 10/04/20 19:06 Respiratory Rate 18 10/04/20 19:06 Blood Pressure 137/65 10/04/20 19:06 Pulse Oximetry 96 10/04/20 19:06 Temperature 37.1 C 10/04/20 19:06 Temperature Source Skin 10/04/20 19:06 Pulse 75 10/04/20 19:06 Respiratory Rate 18 10/04/20 19:06 Blood Pressure 137/65 10/04/20 19:06 Blood Pressure Position Supine 10/04/20 19:06 Pulse Oximetry 96 10/04/20 19:06 Oxygen Delivery Method Room Air 10/04/20 19:06 Oxygen Flow Rate 0 10/04/20 19:06 Pain Level 0 10/04/20 19:06
[2020-10-04 19:58] LABS: Abs Immature Grans 0.03 10^3/uL (0.0-0.06); Absolute Basophil Count 0.01 10^3/uL (0.0-0.2); Absolute Eosinophil Count 0.01 10^3/uL (0.0-0.7); Absolute Lymphocyte Count 0.84 10^3/uL (1.2-3.4); Absolute Monocyte Count 0.63 10^3/uL (0.1-0.8); Absolute Neutrophil Count 5.86 10^3/uL (1.2-6.7); Basophils % 0.1; Eosinophils % 0.1; HCT 30.9 % (36.0-46.0); HGB 11.1 g/dL (11.2-15.7); Immature Grans % 0.4; Lymphocytes % 11.4; MCH 30.9 pg (27.0-33.0); MCHC 35.9 % (32.0-36.0); MPV 10.4 fL (8.0-11.0); Monocytes % 8.5; Neutrophils % 79.5; Nucleated RBC 0 %; Platelet Count 165 10^3/uL (130-400); RBC 3.59 10^6/uL (3.93-5.22); RDW 12.7 % (11.7-14.6); WBC 7.38 10^3/uL (4.4-10.8)
[2020-10-04 19:59] LABS: MCV 86.1 fL (80-95)
[2020-10-04] MEDS: Ondansetron 4 MG/2 ML VIAL IVP (20:01)
[2020-10-04] MEDS: Lactated Ringers 1,000 ML 1000 ML IV (20:01)
[2020-10-04 20:11] LABS: ALT 75 U/L (14-59); AST 46 U/L (15-37); Alkaline Phosphatase 64 U/L (46-116); Anion Gap 8.2 mmol/L (3-11); BUN 11 mg/dL (7-18); Bilirubin, Total 0.6 mg/dL (0.2-1.0); CO2 23.8 mmol/L (21.0-32.0); CREATININE 0.4 mg/dL (0.55-1.02); Calcium 7.8 mg/dL (8.5-10.1); Chloride 88 mmol/L (98-107); Glucose 132 mg/dL (74-106); Magnesium 1.4 mg/dL (1.8-2.4); Potassium 3.6 mmol/L (3.5-5.1); Total Protein 5.9 g/dL (6.4-8.2)
[2020-10-04 20:12] LABS: Sodium 120 mmol/L (136-145)
[2020-10-04] MEDS: MAGNESIUM SULFATE 1 GM/100 ML BAG IVPB (20:28)
--- NOTE | 2020-10-04 20:36 | W.PM.HP.N ---
Date of service: 10/04/20 Time of Service: 20:36 Assessment and Plan Assessment and plan (1) S/P laparoscopic assisted vaginal hysterectomy (LAVH): Status: Acute Assessment and plan: Now with N/V, hyponatremia. No F/C, evidence of bowel obstruction, vaginal bleeding. OB-Robotics Technologist aware and will be consulted. (2) S/P appendectomy: Status: Acute Assessment and plan: No F/C. Pain control with ibuprofen prn, percocet prn. (3) Hyponatremia: Status: Acute Assessment and plan: Volume overload likely. BUN normal, creatinine is low at 0.4 Fluid restriction of 1L daily; modify as Na improves. Lasix 20mg IV now. Urine osmolality and Na ordered. (4) Hypomagnesemia: Status: Acute Assessment and plan: IV replacement and monitor. History of Present Illness History of Present Illness Chief Complaint: nausea and vomiting Narrative: This is a 55 yo female with a h/o endometriosis and mixed urinary incontinence. She is s/p laparoscopically assisted vaginal hysterectomy, left salpingectomy, catery of endometriosis, cystoscopy, Torrez's culdoplasty, uterosacral ligament suspension and appendectomy on 10/03/2020; discharged on the morning of this admission. She presented to the ED with an episode of N/V. No F/C. Her vital signs were normal. She had a BM prior to admission and doesn't c/o abd pain. She had been tolerating a regular diet. WBC count normal. Hgb 11.1.Na was low at 120. K+ low normal at 3.6, BUN 11, creatinine 0.4, glucose 132, Mg+ low at 1.4, total bilirubin 0.6, AST mildly elevated at 46, ALT mildly elevated at 75, Alk phos normal at 64. OB-GY physician, Dr Denny notified by ED physician. Robotics Technologist will be happy to consult. Dr Denny noted that the patient had been drinking a large amount of water in order to urinate after the surgery. No h/o hyponatremia. Review of Systems All systems reviewed & are unremarkable except as noted in HPI and below PFSH Medical History Endometriosis History of postoperative nausea and vomiting Mixed incontinence bladder not where it is supposed to be Surgical History Hx of carpal tunnel repair Oophrectomy, Right (~07/2010) R salpingo oophrectomy,L ovarian cystectomy for bilateral endometiomas S/P appendectomy S/P laparoscopic assisted vaginal hysterectomy (LAVH) Family History Mother Dementia Father Heart disease Social History Smoking/Tobacco Use Status: Never Smoking risk assessment performed?: Yes Drug use: Never Substance use type: does not use Details: alcohol: t-1 Do you feel safe at home: Yes Do you feel safe in your relationship?: Yes Meds Home Medications and Allergies Allergies Allergy/AdvReac Type Severity Reaction Status Date / Time oxycodone HCl [From Percocet] AdvReac Intermediate Nausea, Unverified 10/04/20 19:11 vomiting fabric softner Allergy Mild Skin Rash Uncoded 10/04/20 19:11 environmental Allergy Uncoded 10/04/20 19:11 Home Medications Medication Instructions Recorded Confirmed Type calcium carb and citrate-vitD3 1 ea PO DAILY 01/02/14 10/04/20 History mwbioxewjhn-P9-Ipdzheyre serr 1 ea PO DAILY 01/02/14 10/04/20 History [Osteo Bi-Flex (5-Loxin)] multivitamin [Daily Multi-Vitamin] 1 ea PO DAILY 01/02/14 10/04/20 History Itonuprex-Rvtmkgzsff-Ahzamcl C 1 ea PO BID 04/10/16 10/04/20 History Estroven Maximum Strength 400 mcg PO BID 04/10/16 10/04/20 History euzne-rc-7-tuu-kgb-ejcxplw-ast 1 ea PO DAILY 04/10/16 10/04/20 History [krill oil] estradiol 1 g VAGINAL .COMPLEX #42.5 g 06/06/20 10/04/20 Rx turmeric 1,000 mg PO DAILY 10/01/20 10/04/20 History ibuprofen 600 mg PO Q6H PRN 10/03/20 10/03/20 History Acetaminophen [Tylenol] 1,000 mg PO Q6H PRN PRN #30 tab 10/04/20 10/04/20 Rx docusate sodium 100 mg PO BID PRN PRN #30 cap 10/04/20 10/04/20 Rx ibuprofen [IBU] 600 mg PO Q6H PRN PRN #60 tab 10/04/20 10/04/20 Rx oxycodone-acetaminophen 1 tab PO Q4H PRN PRN #6 tab 10/04/20 Rx Exam Const General: cooperative and no acute distress Eyes Sclera: sclerae normal Pupils: PERRL Resp Effort & Inspection: normal respiratory effort Auscultation: clear to auscultation bilaterally Cardio Rate: regular rate Rhythm: regular rhythm GI Inspection: distended (mild) and incision (with dressing in place) Palpation: soft Neuro General: no focal motor deficits Cranial Nerves: facial strength normal Speech: speech normal Extrem General: no pedal edema and no calf tenderness Results Labs Result diagrams: 10/04/20 19:50 10/04/20 19:50 Labs: Laboratory Results - last 24 hr 10/04/20 10/04/20 19:50 19:50 WBC 7.38 RBC 3.59 L Hgb 11.1 L Hct 30.9 L MCV 86.1 D MCH 30.9 MCHC 35.9 RDW 12.7 Plt Count 165 MPV 10.4 Immature Gran % 0.4 Neutrophils % 79.5 Lymphocytes % 11.4 Monocytes % 8.5 Eosinophils % 0.1 Basophils % 0.1 Nucleated RBC % 0 Absolute Neutrophils 5.86 Absolute Lymphocytes 0.84 L Absolute Monocytes 0.63 Absolute Eosinophils 0.01 Absolute Basophils 0.01 Sodium 120 L* Potassium 3.6 Chloride 88 L Carbon Dioxide 23.8 Anion Gap 8.2 BUN 11 Creatinine 0.4 L Estimated GFR/1.73 m2 >= 60.00 Glucose 132 H Calcium 7.8 L Magnesium 1.4 L Total Bilirubin 0.6 AST 46 H ALT 75 H Alkaline Phosphatase 64 Total Protein 5.9 L Albumin 3.0 L Last Vital Signs Temp 37.1 C 10/04/20 19:06 Pulse 72 10/04/20 20:01 Resp 16 10/04/20 20:10 BP 124/66 10/04/20 20:01 Pulse Ox 95 10/04/20 20:10 COVID-19 Screening Have you, or household traveled for leisure in last 14 days?: No Had IN PERSON contact w/suspected or confirmed C-19 person: No
[2020-10-04 20:50] LABS: Source Nasal/Nares
--- NOTE | 2020-10-04 21:26 | GCONE_ITS ---
Date of service: 10/04/20 Time of Service: 21:26 Assessment and Plan Assessment and plan (1) S/P laparoscopic assisted vaginal hysterectomy (LAVH): Status: Acute Assessment and plan: Postoperative day #1 status post laparoscopically assisted vaginal hysterectomy, repair of pelvic organ prolapse, appendectomy. She had been discharged home earlier today, ambulating, tolerating regular diet and oral pain medication with stable vital signs. She was however drinking a significant amount of free water. She had a moderate amount of difficulty with voiding which has significantly improved over the past 6 to 8 hours. She had an episode of nausea and vomiting which in my estimation is more related to her hyponatremia than to any postsurgical complications. She has been passing flatus, had a regular bowel movement, and prior to this evening was able to tolerate regular diet without difficulties. She will be admitted via medicine service for correction of her electrolyte abnormalities. We will continue to monitor closely. (2) Hyponatremia: Status: Acute Assessment and plan: Management per hospitalist service with diuresis, restriction of free water, and hydration. (3) Hypomagnesemia: Status: Acute Assessment and plan: Magnesium replacement as per medicine (4) S/P appendectomy: Status: Acute History of Present Illness History of Present Illness Chief Complaint: Nausea and vomitting post op Narrative: Patient is a 55-year-old female postoperative day #1 status post laparoscopically assisted vaginal hysterectomy with left salpingectomy, uterosacral ligament fixation, cystoscopy, Torrez's culdoplasty, appendectomy. Her surgical procedure was uncomplicated. Appendectomy performed due to the fac t that the appendix appeared firm, enlarged, and somewhat dilated. Her post operative day 0 course was uncomplicated other than the fact that she had difficulty in voiding after spinal anesthesia. She had a Torres catheter inserted for approximately 8 hours postoperatively and at replacement of Torres catheter had approximately 800 cc of urine. Torres catheter was discontinued in the morning of postoperative day #1. She continued to have some difficulty in voiding, but otherwise was feeling well. Stable vital signs. Stable hemoglobin. No pain. Ambulating, tolerating a regular diet and oral pain medication. In light of this, she was taught intermittent self straight catheterization if she were to get home and have voiding difficulties. During the close course of her post day she did consume a large volume of water which is typical for her. She had been discharged home. After having a regular diet at home, she began to experience some nausea and vomiting. In light of thi s, her had her return to the hospital via the emergency department. On initial evaluation she has significant electrolyte abnormalities with the significant hyponatremia. Her BUN and creatinine are stable. Hemoglobin is stable at 11.7. She has no signs or symptoms of infection. She has been afebrile. She is passing flatus. She had a bowel movement home prior to return to the emergency department. In light of her electrolyte abnormalities, she will be admitted to the hospitalist service for correction of electrolyte abnormalities. Consults Consult date: 10/04/20 Requesting physician: Anish Jhaveri Review of Systems All systems reviewed & are unremarkable except as noted in HPI and below Constitutional Constitutional: Denies chills, Denies fatigue, Denies fever(s), Reports headache(s), Denies increased appetite, Denies lethargy, Denies malaise and Denies poor appetite Eyes Eyes: Reports blurry vision, Denies diplopia, Denies loss of vision and Denies other visual disturbances ENT Ears, Nose, Mouth, and Throat: Reports headache(s) Cardiovascular Cardiovascular: Denies chest pain, Denies syncope, Denies rapid heart rate, Denies palpitations and Denies dyspnea Respiratory Respiratory: Denies chest congestion, Denies cough, Denies pain on inspiration and Denies dyspnea Gastrointestinal Gastrointestinal: Reports as per HPI, Denies bloating, Denies constipation, Denies dyspepsia, Denies diarrhea, Denies loose stools, Reports nausea and Reports vomiting Genitourinary Genitourinary: Denies pelvic pain Comments: Has been now voiding without difficulty. Most recent void, 600 cc. Musculoskeletal Musculoskeletal: Denies myalgias, Denies arthralgias, Denies muscle cramps, Denies muscle weakness and Denies numbness Neurologic Neurologic: Denies syncope, Reports headache(s), Denies loss of vision and Denies numbness Endocrine Endocrine: Denies fatigue, Reports polydipsia and Denies palpitations [facility] Medical History Endometriosis History of postoperative nausea and vomiting Mixed incontinence bladder not where it is supposed to be Surgical History Hx of carpal tunnel repair Oophrectomy, Right (~07/2010) R salpingo oophrectomy,L ovarian cystectomy for bilateral endometiomas S/P appendectomy S/P laparoscopic assisted vaginal hysterectomy (LAVH) Family History Mother Dementia Father Heart disease Social History Smoking/Tobacco Use Status: Never Smoking risk assessment performed?: Yes Drug use: Never Substance use type: does not use Details: alcohol: t-1 Do you feel safe at home: Yes Do you feel safe in your relationship?: Yes Exam Const General: cooperative, healthy appearing, comfortable and no acute distress Nutritional Appearance: average body habitus and well nourished Orientation: alert and oriented x3 Eyes General: appearance normal, both eyes and all related structures Resp Effort & Inspection: normal respiratory effort Auscultation: clear to auscultation bilaterally Cardio Rate: regular rate Rhythm: regular rhythm GI Inspection: normal to inspection, non-distended (Minimal abdominal distention) and incision (Dressed) Auscultation: normal bowel sounds Skin General skin exam: no rashes or lesions noted Extrem General: no clubbing, cyanosis or edema and no calf tenderness Results Last Vital Signs Temp 98.8 F 10/04/20 19:06 Pulse 72 10/04/20 20:01 Resp 23 10/04/20 21:00 BP 124/66 10/04/20 20:01 Pulse Ox 94 10/04/20 21:00 Labs Result diagrams: 10/04/20 19:50 10/04/20 19:50 Labs: Laboratory Results - last 24 hr 10/04/20 10/04/20 10/04/20 19:50 19:50 20:24 WBC 7.38 RBC 3.59 L Hgb 11.1 L Hct 30.9 L MCV 86.1 D MCH 30.9 MCHC 35.9 RDW 12.7 Plt Count 165 MPV 10.4 Immature Gran % 0.4 Neutrophils % 79.5 Lymphocytes % 11.4 Monocytes % 8.5 Eosinophils % 0.1 Basophils % 0.1 Nucleated RBC % 0 Absolute Neutrophils 5.86 Absolute Lymphocytes 0.84 L Absolute Monocytes 0.63 Absolute Eosinophils 0.01 Absolute Basophils 0.01 Sodium 120 L* Potassium 3.6 Chloride 88 L Carbon Dioxide 23.8 Anion Gap 8.2 BUN 11 Creatinine 0.4 L Estimated GFR/1.73 m2 >= 60.00 Glucose 132 H Calcium 7.8 L Magnesium 1.4 L Total Bilirubin 0.6 AST 46 H ALT 75 H Alkaline Phosphatase 64 Total Protein 5.9 L Albumin 3.0 L COVID-19 Source Nasal/nares
[2020-10-04 21:31] LABS: Sodium, Urine 15 mmol/L
[2020-10-04] MEDS: DEXTROSE 5%-LACTATED RINGERS 1,000 ML 150 ML IV (21:55)
[2020-10-04] MEDS: Furosemide 20 MG/2 ML VIAL IVP (22:16)
[2020-10-04] MEDS: Acetaminophen 325 MG TAB 650 MG PO (23:39)
[2020-10-05] MEDS: DEXTROSE 5%-LACTATED RINGERS 1,000 ML 150 ML IV ×2 (04:37→11:22)
[2020-10-05 06:59] LABS: Absolute Basophil Count 0.02 10^3/uL (0.0-0.2); Absolute Eosinophil Count 0.04 10^3/uL (0.0-0.7); Absolute Lymphocyte Count 1.26 10^3/uL (1.2-3.4); Absolute Monocyte Count 0.76 10^3/uL (0.1-0.8); Absolute Neutrophil Count 2.68 10^3/uL (1.2-6.7); Basophils % 0.4; Eosinophils % 0.8; HCT 32.1 % (36.0-46.0); HGB 11.2 g/dL (11.2-15.7); Lymphocytes % 26.5; MCH 30.5 pg (27.0-33.0); MCHC 34.9 % (32.0-36.0); MCV 87.5 fL (80-95); MPV 10.9 fL (8.0-11.0); Neutrophils % 56.3; Nucleated RBC 0 %; Platelet Count 178 10^3/uL (130-400); RBC 3.67 10^6/uL (3.93-5.22); RDW-SD 41.4 fL; WBC 4.76 10^3/uL (4.4-10.8)
[2020-10-05 07:18] LABS: ALT 68 U/L (14-59); AST 41 U/L (15-37); Albumin 2.7 g/dL (3.4-5.0); Alkaline Phosphatase 57 U/L (46-116); Anion Gap 6.5 mmol/L (3-11); BUN 9 mg/dL (7-18); Bilirubin, Total 0.3 mg/dL (0.2-1.0); CO2 27.5 mmol/L (21.0-32.0); CREATININE 0.5 mg/dL (0.55-1.02); Calcium 8.2 mg/dL (8.5-10.1); Chloride 108 mmol/L (98-107); Glucose 119 mg/dL (74-106); Potassium 3.5 mmol/L (3.5-5.1); Sodium 142 mmol/L (136-145); Total Protein 5.6 g/dL (6.4-8.2)
[2020-10-05 07:38] LABS: Magnesium 1.9 mg/dL (1.8-2.4)
[2020-10-05 07:40] VITALS: BP 110/66; PULSE 75; RESP 18; TEMP 36.7; O2SAT 94
[2020-10-05] MEDS: Multivitamin TAB 1 TAB PO (07:44)
[2020-10-05] MEDS: Magnesium Oxide 400 MG TAB PO ×2 (07:44→19:53)
[2020-10-05 08:30] VITALS: O2SAT 95
[2020-10-05 09:02] LABS: COVID-19 PCR Negative (Negative)
[2020-10-05] MEDS: Acetaminophen 325 MG TAB 650 MG PO ×3 (09:17→21:39)
[2020-10-05] MEDS: Ibuprofen 600 MG TAB PO ×2 (09:17→17:00)
--- NOTE | 2020-10-05 09:59 | W.PM.PROGNOT ---
Date of Service Date of service: 10/05/20 Time of Service: 10:00 Assessment and Plan Assessment and plan (1) S/P laparoscopic assisted vaginal hysterectomy (LAVH): Status: Acute Assessment and plan: From a surgical standpoint, patient is doing well after her hysterectomy with appendectomy. Pain is well controlled. She is passing flatus. She is now currently voiding without difficulty. Post void residuals are appropriate. She has been drinking an appropriate amount of fluids. Her electrolyte abnormalities are significantly improved. Hemoglobin is stable. I would anticipate discharge home today per hospitalist service. She will be seen in the office by me in 1 week's time. She was instructed on appropriate hydration and use of electrolyte containing fluids as well. (2) Hypomagnesemia: Status: Acute Assessment and plan: Resolved (3) Hyponatremia: Status: Acute Assessment and plan: Resolved. Suspect iatrogenic hyponatremia due to significant volumes of free water intake. Subjective Subjective Patient reports: no new complaints, pain is less, tolerating liquids well, tolerating a regular diet, voiding w/o difficulty and flatus; denies nausea and vomiting Interval history since last seen: Patient seen and examined this morning. Feeling much better. No further nausea. Drinking appropriate amounts of fluid. Voiding without difficulty. Post void residuals are less than 200 cc. Pain is well controlled. I would anticipate discharge home today per hospitalist service Exam Const General: cooperative, healthy appearing, comfortable and no acute distress Eyes General: appearance normal, both eyes and all related structures Resp Effort & Inspection: normal respiratory effort Cardio Rate: regular rate Rhythm: regular rhythm GI Inspection: non-distended and incision Palpation: soft and no guarding Objective Last Vital Signs Temp 98.1 F 10/05/20 07:40 Pulse 75 10/05/20 07:40 Resp 18 10/05/20 07:40 BP 110/66 10/05/20 07:40 Pulse Ox 95 10/05/20 08:30 Laboratory Results - last 24 hr 10/04/20 10/04/20 10/04/20 19:50 19:50 20:24 WBC 7.38 RBC 3.59 L Hgb 11.1 L Hct 30.9 L MCV 86.1 D MCH 30.9 MCHC 35.9 RDW 12.7 Plt Count 165 MPV 10.4 Immature Gran % 0.4 Neutrophils % 79.5 Lymphocytes % 11.4 Monocytes % 8.5 Eosinophils % 0.1 Basophils % 0.1 Nucleated RBC % 0 Absolute Neutrophils 5.86 Absolute Lymphocytes 0.84 L Absolute Monocytes 0.63 Absolute Eosinophils 0.01 Absolute Basophils 0.01 Sodium 120 L* Potassium 3.6 Chloride 88 L Carbon Dioxide 23.8 Anion Gap 8.2 BUN 11 Creatinine 0.4 L Estimated GFR/1.73 m2 >= 60.00 Glucose 132 H Calcium 7.8 L Magnesium 1.4 L Total Bilirubin 0.6 AST 46 H ALT 75 H Alkaline Phosphatase 64 Total Protein 5.9 L Albumin 3.0 L Ur Random Sodium COVID-19 Source Nasal/nares SARS-CoV-2 (PCR) Negative 10/04/20 10/05/20 10/05/20 21:09 06:30 06:30 WBC 4.76 D RBC 3.67 L Hgb 11.2 Hct 32.1 L MCV 87.5 MCH 30.5 MCHC 34.9 RDW 13.0 Plt Count 178 MPV 10.9 Immature Gran % 0.0 Neutrophils % 56.3 Lymphocytes % 26.5 Monocytes % 16.0 Eosinophils % 0.8 Basophils % 0.4 Nucleated RBC % 0 Absolute Neutrophils 2.68 Absolute Lymphocytes 1.26 Absolute Monocytes 0.76 Absolute Eosinophils 0.04 Absolute Basophils 0.02 Sodium Potassium Chloride Carbon Dioxide Anion Gap BUN Creatinine Estimated GFR/1.73 m2 Glucose Calcium Magnesium 1.9 Total Bilirubin AST ALT Alkaline Phosphatase Total Protein Albumin Ur Random Sodium 15 COVID-19 Source SARS-CoV-2 (PCR) 10/05/20 06:30 WBC RBC Hgb Hct MCV MCH MCHC RDW Plt Count MPV Immature Gran % Neutrophils % Lymphocytes % Monocytes % Eosinophils % Basophils % Nucleated RBC % Absolute Neutrophils Absolute Lymphocytes Absolute Monocytes Absolute Eosinophils Absolute Basophils Sodium 142 D Potassium 3.5 Chloride 108 H Carbon Dioxide 27.5 Anion Gap 6.5 BUN 9 Creatinine 0.5 L Estimated GFR/1.73 m2 >= 60.00 Glucose 119 H Calcium 8.2 L Magnesium Total Bilirubin 0.3 AST 41 H ALT 68 H Alkaline Phosphatase 57 Total Protein 5.6 L Albumin 2.7 L Ur Random Sodium COVID-19 Source SARS-CoV-2 (PCR)
[2020-10-05] MEDS: Normal Saline Flush 10 ML SYR IVP (12:26)
--- NOTE | 2020-10-05 12:39 | W.PM.PROGNOT ---
Date of Service Date of service: 10/05/20 Time of Service: 12:39 Assessment and Plan Assessment and plan (1) Hyponatremia: Status: Acute Assessment and plan: While this has resolved by numbers, the rapid change in the sodium is worrisome as rapid fluid/sodium shifts could lead to central pontine myelinosis, among others. The patient received IV lasix 20 mg IV as well as fluids overnight. Will check BMP Q6H through today/tonight as well as neurochecks Q4H (2) Hypomagnesemia: Status: Resolved Assessment and plan: Repleted - recheck in am (3) S/P laparoscopic assisted vaginal hysterectomy (LAVH): Status: Acute Assessment and plan: Cleared by SALES AND MARKETING REPRESENTATIVE for discharge home. (4) S/P appendectomy: Status: Acute Assessment and plan: TOlerating PO. Pain controlled. (5) DVT prophylaxis: Status: Acute Assessment and plan: TEDs/SCDs (6) Discharge planning issues: Status: Acute Assessment and plan: Full code Will continue to monitor overnight Subjective Subjective Interval history since last seen: Ms Atkinson denies dizziness, headache, chest pain, shortness of breath, nausea. She is able to urinate. I verified with the pharmacy and both last night's and today's morning labs are accurate. Exam Narrative Exam Narrative: General: Pleasant pale middle-aged female, seen ambulating in the hallway and laying comfortable in bed, slightly anxious, A&Ox3 HEENT: EOMI, MMM Heart: RRR, no m/r/g, mildly tachycardic Lungs: CTAB Abdomen: soft, nontender, nondisteded Extremities: no edema BLEs Objective Last Vital Signs Temp 36.7 C 10/05/20 07:40 Pulse 75 10/05/20 07:40 Resp 18 10/05/20 07:40 BP 110/66 10/05/20 07:40 Pulse Ox 95 10/05/20 08:30 Laboratory Results - last 24 hr 10/04/20 10/04/20 10/04/20 19:50 19:50 20:24 WBC 7.38 RBC 3.59 L Hgb 11.1 L Hct 30.9 L MCV 86.1 D MCH 30.9 MCHC 35.9 RDW 12.7 Plt Count 165 MPV 10.4 Immature Gran % 0.4 Neutrophils % 79.5 Lymphocytes % 11.4 Monocytes % 8.5 Eosinophils % 0.1 Basophils % 0.1 Nucleated RBC % 0 Absolute Neutrophils 5.86 Absolute Lymphocytes 0.84 L Absolute Monocytes 0.63 Absolute Eosinophils 0.01 Absolute Basophils 0.01 Sodium 120 L* Potassium 3.6 Chloride 88 L Carbon Dioxide 23.8 Anion Gap 8.2 BUN 11 Creatinine 0.4 L Estimated GFR/1.73 m2 >= 60.00 Glucose 132 H Calcium 7.8 L Magnesium 1.4 L Total Bilirubin 0.6 AST 46 H ALT 75 H Alkaline Phosphatase 64 Total Protein 5.9 L Albumin 3.0 L Ur Random Sodium COVID-19 Source Nasal/nares SARS-CoV-2 (PCR) Negative 10/04/20 10/05/20 10/05/20 21:09 06:30 06:30 WBC 4.76 D RBC 3.67 L Hgb 11.2 Hct 32.1 L MCV 87.5 MCH 30.5 MCHC 34.9 RDW 13.0 Plt Count 178 MPV 10.9 Immature Gran % 0.0 Neutrophils % 56.3 Lymphocytes % 26.5 Monocytes % 16.0 Eosinophils % 0.8 Basophils % 0.4 Nucleated RBC % 0 Absolute Neutrophils 2.68 Absolute Lymphocytes 1.26 Absolute Monocytes 0.76 Absolute Eosinophils 0.04 Absolute Basophils 0.02 Sodium Potassium Chloride Carbon Dioxide Anion Gap BUN Creatinine Estimated GFR/1.73 m2 Glucose Calcium Magnesium 1.9 Total Bilirubin AST ALT Alkaline Phosphatase Total Protein Albumin Ur Random Sodium 15 COVID-19 Source SARS-CoV-2 (PCR) 10/05/20 06:30 WBC RBC Hgb Hct MCV MCH MCHC RDW Plt Count MPV Immature Gran % Neutrophils % Lymphocytes % Monocytes % Eosinophils % Basophils % Nucleated RBC % Absolute Neutrophils Absolute Lymphocytes Absolute Monocytes Absolute Eosinophils Absolute Basophils Sodium 142 D Potassium 3.5 Chloride 108 H Carbon Dioxide 27.5 Anion Gap 6.5 BUN 9 Creatinine 0.5 L Estimated GFR/1.73 m2 >= 60.00 Glucose 119 H Calcium 8.2 L Magnesium Total Bilirubin 0.3 AST 41 H ALT 68 H Alkaline Phosphatase 57 Total Protein 5.6 L Albumin 2.7 L Ur Random Sodium COVID-19 Source SARS-CoV-2 (PCR)
[2020-10-05 12:51] LABS: Anion Gap 8.4 mmol/L (3-11); BUN 10 mg/dL (7-18); CO2 26.6 mmol/L (21.0-32.0); CREATININE 0.6 mg/dL (0.55-1.02); Calcium 8.4 mg/dL (8.5-10.1); Chloride 108 mmol/L (98-107); Glucose 125 mg/dL (74-106); Potassium 3.8 mmol/L (3.5-5.1); Sodium 143 mmol/L (136-145)
[2020-10-05] MEDS: SODIUM CHLORIDE 0.45% 1,000 ML 125 ML IV ×2 (14:20→21:39)
--- NOTE | 2020-10-05 14:38 | CHAPLAIN ---
Lisa told me about having surgery recently and then ending up in the ED last night. She said she hopes to be discharged today. She has been in touch with her by phone.
[2020-10-05 15:00] VITALS: BP 120/72; PULSE 68; RESP 18; TEMP 36.4; O2SAT 94
--- NOTE | 2020-10-05 15:05 | PHA.REVIEW ---
Pharmacy Admission Review - Admission Clinical Review (Last Reviewed 10/04/20 @ 21:32 by Rama Denny DO) Discharge planning issues (Acute) DVT prophylaxis (Acute) Hyponatremia (Acute) Acute dehydration (Acute) Hypomagnesemia (Acute) Hyponatremia (Acute) S/P laparoscopic assisted vaginal hysterectomy (LAVH) (Acute) S/P appendectomy (Acute) oxycodone HCl [From Percocet] Adverse Reaction (Intermediate, Unverified 10/04/20 19:11) Nausea, vomiting fabric softner Allergy (Mild, Uncoded 10/04/20 19:11) Skin Rash environmental Allergy (Uncoded 10/04/20 19:11) Height 5 ft 4 in Weight 70 kg HYPONATREMIA - Comments Comments/Follow Ups: On admission s/p laproscopic hysterectomy and bladder tuck earlier the same morning, patient did state she drank a large amount of water post-op and had difficulty emptying bladder. Not sure if she self-cath'd. Is being bladder scanned and is retaining urine post-void. Repeating Na+ again at 6pm tonight. Frequent neuro checks and will monitor overnight. 1/2 NS running at 125ml/hr - Renal Dosing Renal Dosing: BUN 10 mg/dL (7-18) 10/05/20 12:37 Creatinine 0.6 mg/dL (0.55-1.02) 10/05/20 12:37 Medications needing adjustments: Reviewed (CrCl~68ml/min) - Anticoagulation Anticoagulation: Hgb 11.2 g/dL (11.2-15.7) 10/05/20 06:30 Hct 32.1 % (36.0-46.0) L 10/05/20 06:30 Plt Count 178 10^3/uL (130-400) 10/05/20 06:30 Creatinine 0.6 mg/dL (0.55-1.02) 10/05/20 12:37 DVT Prohphylaxis: N/A (Patient able to ambulate) - Opiate Usage Evaluate Pain Scale/Pains Meds: N/A - Relevant Labs Sodium 143 mmol/L (136-145) 10/05/20 12:37 Potassium 3.8 mmol/L (3.5-5.1) 10/05/20 12:37 Chloride 108 mmol/L (98-107) H 10/05/20 12:37 Magnesium 1.9 mg/dL (1.8-2.4) 10/05/20 06:30 Electrolytes, C-Reactive P, ESR: Reviewed (Na++ 120 on admission...up to 143 this afternoon; MD concerned about overcorrection too fast and potential neurologic disorder, as it's recommended to increase by 4-6 meq/L over 24 hours, Magnesium corrected) - DM Control DM Control: Glucose 125 mg/dL (74-106) H 10/05/20 12:37 - Heart Failure/[place] EF%, BRANDON's, B-Blockers, Diuretics: Reviewed (rec'd Lasix 20mg IVP x1) - BP Control BP Control: Blood Pressure 120/72 Blood Pressure 110/66 - Home Meds Home Med List reviewed: Reviewed Relevent Home Meds Not ordered & why?: Most home meds are OTC supplements
--- NOTE | 2020-10-05 15:10 | INITIAL_ITS ---
- If Service Date Differs Date of service: 10/05/20 Time of Service: 15:10 Care Management Initial Assess REASON FOR HOSPITALIZATION:: Hyponatremia PAST MEDICAL HISTORY/PAST SURGICAL HISTORY:: Medical History. Endometriosis. History of postoperative nausea and vomiting. Mixed incontinence. bladder not where it is supposed to be. Surgical History. Hx of carpal tunnel repair. Oophrectomy, Right (~07/2010). R salpingo oophrectomy,L ovarian cystectomy for bilateral endometiomas. S/P appendectomy. S/P laparoscopic assisted vaginal hysterectomy (LAVH) PREVIOUS FUNCTIONAL STATUS/SOCIAL/FAMILY SUPPORTS:: Lisa lives in [place] with her , Chad. 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 They have two children who are adults. She is independent at baseline. CURRENT FUNCTIONAL STATUS:: Lisa was lying in bed when CM met with her. She reported that she is feeling much better today, and is hoping to return home. Per report, the provider would like to monitor her overnight again and will re check her labs in the morning. CM will continue to follow. ADVANCE DIRECTIVES:: None on file. CM will offer forms. Has patient been provided with info about the portal/API?: Yes Did the patient sign up for the portal?: No INSURANCE COVERAGE / FINANCIAL ISSUES:: [employer]BS CURRENT HOME/COMMUNITY SERVICES/EQUIPMENT:: No current services or equipment. PRIMARY CARE PHYSICIAN:: Alejandrina Sherwood POTENTIAL DISCHARGE NEEDS:: Evaluations for further needs, follow up appointments. PATIENT/FAMILY EDUCATION NEEDS:: Review discharge instructions regarding activity levels and medications, discussion of self care needs including ask me three. ANTICIPATED BARRIERS TO DISCHARGE:: None identified. TRANSPORTATION:: Via private vehicle by her . PLAN:: Anticipate Lisa will return home when medically cleared. She will be driven home via private vehicle by her . She will follow up with her PCP and discharge plan of care. CM will continue to follow.
[2020-10-05 17:16] LABS: Osmolality, Urine 113 mOsm/kg (150-1,150)
[2020-10-05 19:30] LABS: Anion Gap 8.3 mmol/L (3-11); BUN 9 mg/dL (7-18); CO2 26.7 mmol/L (21.0-32.0); CREATININE 0.6 mg/dL (0.55-1.02); Calcium 8.2 mg/dL (8.5-10.1); Chloride 108 mmol/L (98-107); Glucose 106 mg/dL (74-106); Potassium 3.8 mmol/L (3.5-5.1); Sodium 143 mmol/L (136-145)
[2020-10-06 00:28] LABS: Anion Gap 7.9 mmol/L (3-11); BUN 9 mg/dL (7-18); CO2 27.1 mmol/L (21.0-32.0); CREATININE 0.6 mg/dL (0.55-1.02); Calcium 8.4 mg/dL (8.5-10.1); Chloride 108 mmol/L (98-107); Glucose 84 mg/dL (74-106); Sodium 143 mmol/L (136-145)
[2020-10-06 00:36] VITALS: BP 111/66; PULSE 61; RESP 20; TEMP 36.6; O2SAT 97
[2020-10-06] MEDS: Ibuprofen 600 MG TAB PO ×2 (01:50→08:56)
[2020-10-06] MEDS: Acetaminophen 325 MG TAB 650 MG PO ×2 (01:50→08:56)
[2020-10-06] MEDS: SODIUM CHLORIDE 0.45% 1,000 ML 125 ML IV (05:15)
[2020-10-06 06:46] LABS: Abs Immature Grans 0.01 10^3/uL (0.0-0.06); Absolute Basophil Count 0.04 10^3/uL (0.0-0.2); Absolute Eosinophil Count 0.11 10^3/uL (0.0-0.7); Absolute Lymphocyte Count 2.05 10^3/uL (1.2-3.4); Absolute Monocyte Count 0.61 10^3/uL (0.1-0.8); Basophils % 0.7; HCT 32.1 % (36.0-46.0); HGB 10.8 g/dL (11.2-15.7); Immature Grans % 0.2; Lymphocytes % 37.8; MCH 30.4 pg (27.0-33.0); MCHC 33.6 % (32.0-36.0); MCV 90.4 fL (80-95); MPV 10.5 fL (8.0-11.0); Monocytes % 11.3; Nucleated RBC 0 %; Platelet Count 170 10^3/uL (130-400); RBC 3.55 10^6/uL (3.93-5.22); RDW 13.7 % (11.7-14.6); RDW-SD 45.2 fL; WBC 5.42 10^3/uL (4.4-10.8)
[2020-10-06 06:58] LABS: Anion Gap 9.4 mmol/L (3-11); BUN 6 mg/dL (7-18); CO2 24.6 mmol/L (21.0-32.0); CREATININE 0.5 mg/dL (0.55-1.02); Calcium 8.3 mg/dL (8.5-10.1); Chloride 107 mmol/L (98-107); Glucose 88 mg/dL (74-106); Magnesium 1.8 mg/dL (1.8-2.4); Potassium 3.6 mmol/L (3.5-5.1); Sodium 141 mmol/L (136-145)
[2020-10-06 08:45] VITALS: BP 106/72; PULSE 72; RESP 18; TEMP 37; O2SAT 98
[2020-10-06] MEDS: Magnesium Oxide 400 MG TAB PO (08:56)
[2020-10-06] MEDS: Multivitamin TAB 1 TAB PO (08:56)
--- NOTE | 2020-10-06 10:35 | W.PM.DS.N ---
Date of service: 10/06/20 Time of Service: 10:38 DS: Diagnosis Discharge Diagnosis (1) Hyponatremia: Start date: 10/06/20 Start time: 10:39 Status: Resolved Asessment and Plan: Corrected, suspect this was not a true value on admission, however she was admitted and monitored for over 24 hours with q 6 h vital bmp checks. sodium continued to range in the low 140's. She is voiding without difficulty. No signs of neuro deficits, will repeat bmp on Thursday and follow up with PCP next week. (2) Hypomagnesemia: Start date: 10/06/20 Start time: 10:42 Status: Resolved Asessment and Plan: Repleted and in normal range (3) S/P laparoscopic assisted vaginal hysterectomy (LAVH): Start date: 10/06/20 Start time: 10:43 Status: Acute Asessment and Plan: cleared by lumpia wrapper maker to discharge home will f/u as an outpatient (4) S/P appendectomy: Start date: 10/06/20 Start time: 10:43 Status: Acute Asessment and Plan: tolerating PO, above case discussed with Dr. lake who is in agreement Discharge Plan Disposition Patient Disposition: HOME Condition: Good Discharge Details Reason For Visit: HYPONATREMIA Admit Date/Time: 10/04/20 20:28 Admit Provider: Johnny Patino Attending Provider: Johnny Patino Primary Care Provider: Alejandrina Sherwood [facility] Course Hospital Course: This is a 55 yo female with a h/o endometriosis and mixed urinary incontinence. She is s/p laparoscopically assisted vaginal hysterectomy, left salpingectomy, catery of endometriosis, cystoscopy, Torrez's culdoplasty, uterosacral ligament suspension and appendectomy on 10/03/2020; discharged on the morning of this admission. She presented to the ED with an episode of N/V. No F/C. Her vital signs were normal. She had a BM prior to admission and doesn't c/o abd pain. She had been tolerating a regular diet. WBC count normal. Hgb 11.1. Na was low at 120. K+ low normal at 3.6, BUN 11, creatinine 0.4, glucose 132, Mg+ low at 1.4, total bilirubin 0.6, AST mildly elevated at 46, ALT mildly elevated at 75, Alk phos normal at 64. OB-GY physician, Dr Denny notified by ED physician. Industrial Security Analyst will be happy to consult. Dr Denny noted that the patient had been drinking a large amount of water in order to urinate after the surgery. No h/o hyponatremia. She was asked to be admitted to /s for further mangement. She was given a liter by Ed then lasix, sodium corrected by the am to 142. She was up and ambulating, her sodium continued to be monitored for over 24 hours with serial bmp's q 6. Sodium level continued to be in the 140's, she shows no signs of neurological deficits. 1/2 ns was given to try to get patient to baseline of 130's, however I am not certain that the initial sodium level of 120 was accurate given that her levels have been stable with no history of hyponatremia, she is not an alcoholic and had stable levels prior to admission. She has been ambulatory in the nonstop since admission. She is being discharged. Will repeat bmp on Thursday to make sure sodium level remains stable. Follow up with PCP next week. She denies trouble with urination, CP, N/V/D, SOB Home Meds and New Rx's Prescriptions: Continued estradiol 0.01 % (0.1 mg/gram) cream 1 g vaginal .COMPLEX Qty: 42.5 RF: 2 multivitamin [Daily Multi-Vitamin] 1 EACH tablet 1 ea PO DAILY RF: 0 calcium carb and citrate-vitD3 1 EACH tablet extended release 1 ea PO DAILY RF: 0 zazbsujlsea-H3-Ybwbcpuax serr [Osteo Bi-Flex (5-Loxin)] 1 EACH tablet 1 ea PO DAILY RF: 0 Estroven Maximum Strength 400 MCG tablet 400 mcg PO BID RF: 0 Hcmxacoak-Rwxbnxheql-Ttyymci C 1 EACH tablet 1 ea PO BID RF: 0 [id number]-tpnislo-ast [krill oil] 1 EACH capsule 1 ea PO DAILY RF: 0 turmeric 400 mg Capsule 1,000 mg PO DAILY RF: 0 ibuprofen 600 mg Tablet 600 mg PO Q6H PRNRF: 0 Acetaminophen [Tylenol] 1,000 mg PO Q6H PRN PRNQty: 30 RF: 0 docusate sodium 100 mg capsule 100 mg PO BID PRN PRN (Reason: Constipation) Qty: 30 RF: 0 oxycodone-acetaminophen 5-325 mg Tablet 1 tab PO Q4H PRN PRNQty: 6 RF: 0 ibuprofen [IBU] 600 mg Tablet 600 mg PO Q6H PRN PRNQty: 60 RF: 1 Discharge Instructions Instructions: Hyponatremia (DC) Additional Instructions: Repeat Lab work on Thursday Follow up with PCP next week to go over lab work or call the office to see if they want to see you Follow up with Dr. Denny as scheduled Stand Alone Forms: Nursing Discharge Form Referrals: Rama Denny DO [OSTEOPATHIC DOCTOR] - 10/16/20 12:40 pm Activity:: Activity as Tolerated Equipment/Supplies:: No Equipment Needed Diet:: As Tolerated Discharge Orders Discharge Orders: Discharge Order (Routine); Ordered 10/06/20 Ordered By: Maria De Jesus Cabral DS: Summary Time Spent with Patient providing and/or coordinating discharge services: Greater than 30 minutes (approx 35 mins spent ) Status at Discharge Functional status at discharge: independent ambulation Overall status at discharge: patient is back to baseline Mental Status: mental status grossly normal Speech and Movement: speech and movement normal Mood: congruent mood Affect: normal affect Exam Narrative Exam Narrative: General: Pleasant pale middle-aged female, seen ambulating in the hallway and sitting up in chair, A&Ox3 HEENT: EOMI, MMM Heart: RRR, no m/r/g, mildly tachycardic Lungs: CTAB Abdomen: soft, nontender, nondisteded Extremities: no edema BLEs Psych Mental Status: mental status grossly normal Speech and Movement: speech and movement normal Mood: congruent mood Affect: normal affect DS: Data Vitals/I&O Vitals and I&O: Vital Signs Temperature 37.0 C 10/06/20 08:45 Temperature Source Skin 10/06/20 08:45 Pulse 72 10/06/20 08:45 Pulse Rhythm Regular 10/06/20 04:26 Pulse 84 10/04/20 21:00 Respiratory Rate 18 10/06/20 08:45 Respiratory Effort Non-Labored 10/06/20 04:26 Respiratory Depth Normal 10/06/20 04:26 Respiratory Pattern Normal 10/06/20 04:26 Blood Pressure 106/72 10/06/20 08:45 Blood Pressure Mean 82 10/04/20 20:01 Blood Pressure Position Supine 10/04/20 19:06 Pulse Oximetry 98 10/06/20 08:45 Oxygen Delivery Method Room Air 10/06/20 08:45 Oxygen Flow Rate 0 10/06/20 08:45 Pain Level 3 10/06/20 08:56 Intake & Output 10/05/20 10/05/20 10/06/20 11:59 23:59 11:59 Intake Total 2330 / 4204.583 1874.583 / 4204.583 1325 / 1325 Output Total 3550 / 6110 2560 / 6110 987 / 987 Balance -1220 / -1905.417 -685.417 / -1905.417 338 / 338 Weight 70 kg Intake: IV 1999 / 3084.583 1084.583 / 3084.583 1325 / 1325 Oral 330 / 1120 790 / 1120 Output: Urine 3200 / 5542 2342 / 5542 900 / 900 Post Void Residual 350 / 568 218 / 568 87 / 87 Other: Urine Color Pale Yellow Yellow Yellow Straw Urine Appearance Clear Clear Clear Urine Odor Normal Normal Comment Void x1 in the toilet. unable to bladder scan at this time, patient on the phone. Will re-attempt later Voiding Methods Toilet Toilet Toilet Data Completed and Pending Labs on day of discharge: Labs from last 24 hours 10/06/20 10/06/20 10/06/20 06:32 06:32 00:15 WBC 5.42 RBC 3.55 L Hgb 10.8 L Hct 32.1 L MCV 90.4 MCH 30.4 MCHC 33.6 RDW 13.7 Plt Count 170 MPV 10.5 Immature Gran % 0.2 Neutrophils % 48.0 Lymphocytes % 37.8 Monocytes % 11.3 Eosinophils % 2.0 Basophils % 0.7 Nucleated RBC % 0 Absolute Neutrophils 2.60 Absolute Lymphocytes 2.05 Absolute Monocytes 0.61 Absolute Eosinophils 0.11 Absolute Basophils 0.04 Sodium 141 143 Potassium 3.6 4.0 Chloride 107 108 H Carbon Dioxide 24.6 27.1 Anion Gap 9.4 7.9 BUN 6 L 9 Creatinine 0.5 L 0.6 Estimated GFR/1.73 m2 >= 60.00 >= 60.00 Glucose 88 84 Calcium 8.3 L 8.4 L Magnesium 1.8 Total Bilirubin AST ALT Alkaline Phosphatase Total Protein Albumin Urine Osmolality 10/05/20 10/05/20 10/05/20 18:25 12:37 06:30 WBC RBC Hgb Hct MCV MCH MCHC RDW Plt Count MPV Immature Gran % Neutrophils % Lymphocytes % Monocytes % Eosinophils % Basophils % Nucleated RBC % Absolute Neutrophils Absolute Lymphocytes Absolute Monocytes Absolute Eosinophils Absolute Basophils Sodium 143 143 142 D Potassium 3.8 3.8 3.5 Chloride 108 H 108 H 108 H Carbon Dioxide 26.7 26.6 27.5 Anion Gap 8.3 8.4 6.5 BUN 9 10 9 Creatinine 0.6 0.6 0.5 L Estimated GFR/1.73 m2 >= 60.00 >= 60.00 >= 60.00 Glucose 106 125 H 119 H Calcium 8.2 L 8.4 L 8.2 L Magnesium Total Bilirubin 0.3 AST 41 H ALT 68 H Alkaline Phosphatase 57 Total Protein 5.6 L Albumin 2.7 L Urine Osmolality 10/04/20 10/04/20 21:09 19:50 WBC RBC Hgb Hct MCV MCH MCHC RDW Plt Count MPV Immature Gran % Neutrophils % Lymphocytes % Monocytes % Eosinophils % Basophils % Nucleated RBC % Absolute Neutrophils Absolute Lymphocytes Absolute Monocytes Absolute Eosinophils Absolute Basophils Sodium 120 L* Potassium 3.6 Chloride 88 L Carbon Dioxide 23.8 Anion Gap 8.2 BUN 11 Creatinine 0.4 L Estimated GFR/1.73 m2 >= 60.00 Glucose 132 H Calcium 7.8 L Magnesium 1.4 L Total Bilirubin 0.6 AST 46 H ALT 75 H Alkaline Phosphatase 64 Total Protein 5.9 L Albumin 3.0 L Urine Osmolality 113 L PFSH Medical History Endometriosis History of postoperative nausea and vomiting Mixed incontinence bladder not where it is supposed to be Surgical History Hx of carpal tunnel repair Oophrectomy, Right (~07/2010) R salpingo oophrectomy,L ovarian cystectomy for bilateral endometiomas S/P appendectomy S/P laparoscopic assisted vaginal hysterectomy (LAVH) Family History Mother Dementia Father Heart disease Social History Smoking/Tobacco Use Status: Never Smoking risk assessment performed?: Yes Drug use: Never Substance use type: does not use Details: alcohol: t-1 Do you feel safe at home: Yes Do you feel safe in your relationship?: Yes
--- NOTE | 2020-10-06 17:13 | PDOC.CMDIS ---
- If Service Date Differs Date of service: 10/06/20 Time of Service: 17:13 LACE Index Scoring Tool - Questions: Length of Stay (in days): 2 Acuity (Admit via E.D.?): Yes E.D. Visits: 1 - Answers: Total Score: 6 Risk of Readmission: Low Risk Care Management Discharge Reason for Hospitalization: Hyponatremia Discharge Plan: Lisa will return home today in the care of her . Her will drive her home when ready. She will follow up with her PCP and discharge plan of care. She is happy to be returning home. Patient/Family Education Needs: Review discharge instructions regarding activity levels and medications, discussion of self care needs including ask me three.
== END 2020-10-06 11:26 | disposition home or self-care (01) | DRG 641 ==
LOC: ER 21:15 → MS 21:30
PROVIDERS: Internal Medicine; Admitting Provider Family Medicine; Emergency Provider Student in an Organized Health Care Education/Training Program; PCP Nurse Practitioner Family; Visit Provider Family Medicine
DX: E87.1 Hypo-osmolality and hyponatremia (principal); E83.42 Hypomagnesemia; R11.2 Nausea with vomiting, unspecified; Z90.710 Acquired absence of both cervix and uterus
CPT/HCPCS: 36415; 80048; 80053; 83935; 87635; 96361; 96365; 96375; 99222; 99232; 99239; 99252; 99285; 83735; 84300; 85025; 99284; J1941; J2405; J3475

== ENCOUNTER 2021-07-29 15:15 | Outpatient (REF) | payer BC, SELFPAY ==
[2021-07-30 15:56] LABS: COVID-19 RT-PCR UVMMC Result Positive (Negative)
== END 2021-07-29 15:16 | disposition home or self-care (01) ==
LOC: NCHCN 15:15
PROVIDERS: PCP Nurse Practitioner Family; Visit Provider Nurse Practitioner Family
DX: Z20.822 Contact with and (suspected) exposure to COVID-19 (principal)
CPT/HCPCS: U0003

== ENCOUNTER 2022-02-10 10:42 | Outpatient (REF) | payer BC, SELFPAY ==
[2022-02-10 15:43] LABS: Anion Gap 8.7 mmol/L (3-11); BUN 15 mg/dL (7-18); CO2 23.3 mmol/L (21.0-32.0); CREATININE 0.5 mg/dL (0.55-1.02); Calcium 8.8 mg/dL (8.5-10.1); Chloride 99 mmol/L (98-107); Glucose 96 mg/dL (74-106); Sodium 131 mmol/L (136-145)
[2022-02-10 15:46] LABS: ESR 2 mm/hr (0-30)
[2022-02-10 15:47] LABS: Absolute Basophil Count 0.05 10^3/uL (0.0-0.2); Absolute Eosinophil Count 0.17 10^3/uL (0.0-0.7); Absolute Monocyte Count 0.48 10^3/uL (0.1-0.8); Absolute Neutrophil Count 1.65 10^3/uL (1.2-6.7); Basophils % 1.2; Eosinophils % 4.2; HCT 37.5 % (36.0-46.0); HGB 12.9 g/dL (11.2-15.7); MCH 30.6 pg (27.0-33.0); MCHC 34.4 % (32.0-36.0); MCV 89 fL (80-95); Monocytes % 11.9; Neutrophils % 40.7; Platelet Count 215 10^3/uL (130-400); RBC 4.21 10^6/uL (3.93-5.22); RDW 13.7 % (11.7-14.6); RDW-SD 44.8 fL; WBC 4.05 10^3/uL (4.4-10.8)
[2022-02-11 11:04] LABS: Lyme Ab w Rflx to Lyme Confirm Negative (Negative)
[2022-02-11 13:46] LABS: SS-B (La) Ab, IgG 1.3 Units (<20.0)
[2022-02-11 15:26] LABS: ANA Interpretation Negative (Negative)
[2022-02-11 15:38] LABS: SS-A Antibody 1.2 Units (<20.0)
[2022-02-15 20:45] LABS: Anaplasma phagocytophilum Negative (Negative); B. miyamotoi PCR Negative (Negative); Babesia divergens/MO-1 Negative (Negative); Babesia duncani Negative (Negative); Babesia microti Negative (Negative); Ehrlichia chaffeensis Negative (Negative); Ehrlichia ewingii/canis Negative (Negative); Ehrlichia muris eauclairensis Negative (Negative)
== END 2022-02-10 10:43 | disposition home or self-care (01) ==
LOC: NCHCN 10:42
PROVIDERS: PCP Nurse Practitioner Family; Visit Provider Nurse Practitioner Family
DX: R21 Rash and other nonspecific skin eruption (principal); H10.30 Unspecified acute conjunctivitis, unspecified eye
CPT/HCPCS: 80048; 85652; 87798; 85025; 86038; 86140; 86235; 86618

== ENCOUNTER 2022-02-16 10:03 | Emergency (ER) | payer BC, SELFPAY ==
[2022-02-16 10:05] VITALS: BP 135/74; PULSE 69; RESP 18; TEMP 37.2; O2SAT 96
[2022-02-16] MEDS: Lidocaine 1% Multi-Dose 20 ML VIAL (10:45)
--- NOTE | 2022-02-18 09:19 | ED.GENADUL_ITS ---
Discharge Plan Disposition Patient Disposition: HOME Condition: Stable Discharge Details Clinical Impression: Hand laceration Primary Care Provider: Alejandrina Sherwood ED Provider: Cookie Beltran Home Meds and New Rx's Prescriptions: Continued estradiol 0.01 % (0.1 mg/gram) cream 1 g vaginal .COMPLEX Qty: 42.5 2RF Rx Instructions: 1 g vaginal 3 times weekly at bedtime multivitamin [Daily Multi-Vitamin] 1 EACH tablet 1 ea PO DAILY calcium carb and citrate-vitD3 1 EACH tablet extended release 1 ea PO DAILY tdhospcgcir-Z9-Exipxwnpk serr [Osteo Bi-Flex (5-Loxin)] 1 EACH tablet 1 ea PO DAILY Estroven Maximum Strength 400 MCG tablet 400 mcg PO BID Ciawaacto-Hfumantyd-Mqdjkjn C 1 EACH tablet 1 ea PO BID nihqr-ue-1-qfl-ahk-aonbgwp-ast [krill oil] 1 EACH capsule 1 ea PO DAILY turmeric 400 mg Capsule 1,000 mg PO DAILY ibuprofen 600 mg Tablet 600 mg PO Q6H PRN Acetaminophen [Tylenol] 1,000 mg PO Q6H PRN PRNQty: 30 0RF docusate sodium 100 mg capsule 100 mg PO BID PRN PRN (Reason: Constipation) Qty: 30 0RF Discharge Instructions Instructions: Laceration (ED) Additional Instructions: Ibuprofen and Tylenol as needed for pain Suture removal in 10 days Return with spreading redness, fever, worsening pain Do not submerge in water Referrals: Alejandrina Sherwood [Primary Care Provider] - Discharge Data Discharge Date/Time-TO BE ENTERED AT DEPARTURE: 02/16/22 11:26 Medical Decision Making Patient appears well Tolerated suture placement without incident 3 vertical mattress sutures placed Will remove in 10 to 12 days Return precautions discussed and patient expressed understanding Tetanus up-to-date Medical Records Medical records reviewed: Yes I reviewed the patient's medical records. HPI General Date/Time Provider Initiated Documentation: 02/16/22 10:13 . HPI Narrative: This 56-year-old female presents with laceration to her right hand having redness. She denies any additional injuries. Tetanus is reportedly up-to-date. Related Data Home Medications Medication Instructions Recorded Confirmed calcium carb,cit ER 600 mg-vit D3 1 ea PO DAILY 01/02/14 02/16/22 12.5 mcg (500 unit) tablet,ext.rel glucosamine MSp-I4-Naxvcwluj 1 ea PO DAILY 01/02/14 02/16/22 buster 1,500 mg-400 unit-100 mg tablet (Osteo Bi-Flex (5-Loxin)) multivitamin (Daily Multi-Vitamin 1 ea PO DAILY 01/02/14 02/16/22 tablet) cranberry uutg-P-adbwiobb coag 450 1 ea PO BID 04/10/16 02/16/22 mg-30 mg-50 million cell tablet (Uhaxrdlmy-Qjjgzcxdr-Wgvdpnv C) krill 1,000 mg-omega-3 170 mg-dha 1 ea PO DAILY 04/10/16 02/16/22 50 mg-epa 80 yz-ibxcds-ewtst capsule (krill oil) multivitamin,Ca,mineral-folic 400 mcg PO BID 04/10/16 02/16/22 acid-herbal no.157 400 mcg tablet (Estroven Maximum Strength) estradiol 0.01% (0.1 mg/gram) 1 g vaginal .COMPLEX #42.5 grams 06/06/20 02/16/22 vaginal cream turmeric 400 mg capsule 1,000 mg PO DAILY 10/01/20 02/16/22 ibuprofen 600 mg tablet 600 mg PO Q6H PRN 10/03/20 02/16/22 Acetaminophen [Tylenol] 1,000 mg PO Q6H PRN PRN #30 tabs 10/04/20 02/16/22 docusate sodium 100 mg capsule 100 mg PO BID PRN PRN Constipation 10/04/20 02/16/22 #30 caps Previous Rx's Medication Instructions Recorded estradiol 0.01% (0.1 mg/gram) 1 g vaginal .COMPLEX #42.5 grams 06/06/20 vaginal cream Acetaminophen [Tylenol] 1,000 mg PO Q6H PRN PRN #30 tabs 10/04/20 docusate sodium 100 mg capsule 100 mg PO BID PRN PRN Constipation 10/04/20 #30 caps Allergies Allergy/AdvReac Type Severity Reaction Status Date / Time oxycodone HCl [From Percocet] AdvReac Intermediate Nausea, Unverified 10/10/20 15:23 vomiting fabric softner Allergy Mild Skin Rash Uncoded 10/10/20 15:23 environmental Allergy Uncoded 10/10/20 15:23 General Stated Complaint: Laceration AARON: 4 Review of Systems Narrative: Review of systems obtained x3 and negative aside from medication HPI PFSH All Active Problems (Updated 02/16/22 @ 11:00 by TOBI Moncada) Hand laceration (Acute) Medical History Endometriosis History of postoperative nausea and vomiting Mixed incontinence bladder not where it is supposed to be Surgical History Hx of carpal tunnel repair Oophrectomy, Right (~07/2010) R salpingo oophrectomy,L ovarian cystectomy for bilateral endometiomas S/P appendectomy S/P laparoscopic assisted vaginal hysterectomy (LAVH) Family History Mother Dementia Father Heart disease Social History Smoking/Tobacco Use Status: Never Smoking risk assessment performed?: Yes Drug use: Never Substance use type: does not use Do you feel safe at home: Yes Do you feel safe in your relationship?: Yes Exam Const General: cooperative Extrem Hand/finger images: 1. Half inch laceration noted, neurovascularly intact Course Vital Signs Vital signs: Vital Signs Temperature 37.2 C 02/16/22 10:05 Pulse 69 02/16/22 10:05 Respiratory Rate 18 02/16/22 10:05 Blood Pressure 135/74 02/16/22 10:05 Pulse Oximetry 96 02/16/22 10:05 Temperature 37.2 C 02/16/22 10:05 Temperature Source Temporal Artery Scan 02/16/22 10:05 Pulse 69 02/16/22 10:05 Respiratory Rate 18 02/16/22 10:05 Respiratory Effort Non-Labored 02/16/22 10:13 Blood Pressure 135/74 02/16/22 10:05 Pulse Oximetry 96 02/16/22 10:05 Oxygen Delivery Method Room Air 02/16/22 10:05 Oxygen Flow Rate 0 02/16/22 10:05 Pain Level 5 02/16/22 10:05 Procedures Laceration Laceration 1: Site: hand Side (If applicable): right Size (cm): 1.25 Description: linear Depth: simple, single layer Local Anesthetic: Lidocaine 1% Amount of anesthesia used (mL): 3 Pre-repair: wound explored, irrigated extensively and deep structures intact Skin layer closed with: nylon Size (cm): 4-0 Number of sutures: 3 Technique: other (vertical mattress)
== END 2022-02-16 11:26 | disposition home or self-care (01) ==
PROVIDERS: Emergency Provider Physician Assistant; PCP Nurse Practitioner Family
DX: S61.411A Laceration without foreign body of right hand, initial encounter (principal); X58.XXXA Exposure to other specified factors, initial encounter
CPT/HCPCS: 12001; 99282; J3490

== ENCOUNTER → 2022-06-30 01:38 | Outpatient (CLI) | payer BC, SELFPAY ==
--- NOTE | 2022-06-30 15:20 | DI.MAMMO_ITS ---
Exam(s) MAMMO SCREENING EXAM: MAMMO SCREENING CLINICAL HISTORY: SCREENING FOR BREAST CANCER Z12.31 TECHNIQUE: Mammograms were interpreted according to the usual protocol including computer analysis w [facility] CAD system, tomosynthesis and C-view imaging. COMPARISON: 2014 and 2019 FINDINGS: The breasts are composed of scattered fibroglandular densities, Breast Density category B. No suspicious masses or suspicious microcalcifications are seen. No skin thickening or abnormal axillary lymph nodes are seen. There has been no significant change from prior exams. IMPRESSION: BI-RADS Category 1, Negative mammogram Yearly screening mammography is recommended. Breast Density - Category B, scattered fibroglandular densities. A negative radiographic report should not delay biopsy if a dominant or clinically suspicious mass is present. Up to ten percent of cancers are not identified on mammography. A negative report may reinforce clinical impression. Adenosis and dense breasts may obscure an underlying neoplasm. False positive reports average 6 to 10%. Patient will receive a letter notifying them of these results.
== END ==
PROVIDERS: PCP Nurse Practitioner Family; Visit Provider Nurse Practitioner Family
DX: Z12.31 Encounter for screening mammogram for malignant neoplasm of breast (principal)
CPT/HCPCS: 77063; 77067

== ENCOUNTER 2024-08-14 08:56 | Emergency (ER) | payer BC, SELFPAY ==
[2024-08-14 09:04] VITALS: BP 117/75; PULSE 94; RESP 18; TEMP 36.9; O2SAT 98
[2024-08-14 09:09] VITALS: BP 117/75; PULSE 94; RESP 18; TEMP 36.9; O2SAT 98
--- NOTE | 2024-08-14 09:45 | DI.RAD_ITS ---
Exam(s) XR CHEST 2V PA LATERAL EXAM: XR CHEST 2V PA LATERAL CLINICAL HISTORY: cough TECHNIQUE: 2D digital imaging was performed of the chest. Two images were obtained. PA and lateral views were obtained. COMPARISON: CR LEFT RIBS TO INCLUDE CXR from 12/21/2007 CR ABD FLAT UPRIGHT PA CHEST from 01/03/2012 FINDINGS: MEDIASTINUM: Normal. HEART: Normal. PULMONARY VASCULATURE: Normal. LUNGS: Clear. PLEURAL SPACE: No pleural effusion or pneumothorax. BONE:Within normal limits for the patient's age. OTHER FINDINGS:Normal. IMPRESSION: No acute pulmonary findings. DATA REPOSITORY: RADIATION DOSE DELIVERED:
--- NOTE | 2024-08-14 09:49 | ED.GENADUL_ITS ---
Discharge Plan Disposition Patient Disposition: Home Condition: Stable Discharge Details Clinical Impression: Influenza, Cough Primary Care Provider: Alejandrina Sherwood ED Provider: Bam Murphy Home Meds and New Rx's Prescriptions: New prednisone 20 mg tablet 60 mg PO DAILY 4 Days Qty: 12 0RF Continued estradiol 0.01 % (0.1 mg/gram) cream 1 g vaginal .COMPLEX Qty: 42.5 2RF Rx Instructions: 1 g vaginal 3 times weekly at bedtime multivitamin [Daily Multi-Vitamin] 1 EACH tablet 1 ea PO DAILY calcium carb, citrate-vit D3 1 EACH tablet extended release 1 ea PO DAILY ncfhejrdcdg-W0-Svjebabeh serr [Osteo Bi-Flex (5-Loxin)] 1 EACH tablet 1 ea PO DAILY Estroven Maximum Strength 400 MCG tablet 400 mcg PO BID Giadxyqqw-Gnauxqooj-Slcykik C 1 EACH tablet 1 ea PO BID nmlop-jv-3-iyx-oof-lmzajia-ast [krill oil] 1 EACH capsule 1 ea PO DAILY turmeric 400 mg Capsule 1,000 mg PO DAILY ibuprofen 600 mg Tablet 600 mg PO Q6H PRN Acetaminophen [Tylenol] 1,000 mg PO Q6H PRN PRNQty: 30 0RF docusate sodium 100 mg capsule 100 mg PO BID PRN PRN (Reason: Constipation) Qty: 30 0RF Discharge Instructions Additional Instructions: You are positive for the flu. Your x-ray did not show any concerning findings If you are not improving this week follow-up with your primary care provider You can use the inhaler 2 puffs every 4 hours as needed If you feel more ill, have severe worsening shortness of breath or new symptoms such as persistent vomiting return to the emergency department for reevaluation HPI General Mode of arrival: ambulatory . Date/Time Provider Initiated Documentation: 08/14/24 08:57 . Limitations to Documentation: no limitations . Information obtained by: patient . History of Present Illness 58 year old F presents to the emergency department with the chief complaint of cough, described as moderate, Patient started experiencing this week(s) (2) and it has been constant. No relieving factors improve symptom(s), No exacerbating factors reported . Patient notes fever/chills. Patient did receive the following treatments prior to arrival, none Related Data Home Medications ?Medication ?Instructions ?Recorded ?Confirmed calcium ER 600 mg (as carb,cit)-D3 1 ea PO DAILY 01/02/14 08/14/24 12.5 mcg (500 unit) tablet, ext.rel glucosamine FZr-R4-Xnrvrxfgc 1 ea PO DAILY 01/02/14 08/14/24 buster 1,500 mg-400 unit-100 mg tablet (Osteo Bi-Flex (5-Loxin)) multivitamin (Daily Multi-Vitamin 1 ea PO DAILY 01/02/14 08/14/24 tablet) cranberry zjgh-M-vyfuogby coag 450 1 ea PO BID 04/10/16 08/14/24 mg-30 mg-50 million cell tablet (Wvurimxzm-Xhqblghop-Mwdkckh C) krill 1,000 mg-omega-3 170 mg-dha 1 ea PO DAILY 04/10/16 08/14/24 50 mg-epa 80 kd-dsekkd-gvzmh capsule (krill oil) multivitamin,Ca,mineral-folic 400 mcg PO BID 04/10/16 08/14/24 acid-herbal no.157 400 mcg tablet (Estroven Maximum Strength) estradiol 0.01% (0.1 mg/gram) 1 g vaginal .COMPLEX #42.5 grams 06/06/20 08/14/24 vaginal cream turmeric 400 mg capsule 1,000 mg PO DAILY 10/01/20 08/14/24 ibuprofen 600 mg tablet 600 mg PO Q6H PRN 10/03/20 08/14/24 Acetaminophen [Tylenol] 1,000 mg PO Q6H PRN PRN #30 tabs 10/04/20 08/14/24 docusate sodium 100 mg capsule 100 mg PO BID PRN PRN Constipation 10/04/20 08/14/24 #30 caps prednisone 20 mg tablet 60 mg (3 x 20 mg) PO DAILY 4 days 08/14/24 #12 tabs Previous Rx's ?Medication ?Instructions ?Recorded estradiol 0.01% (0.1 mg/gram) 1 g vaginal .COMPLEX #42.5 grams 06/06/20 vaginal cream Acetaminophen [Tylenol] 1,000 mg PO Q6H PRN PRN #30 tabs 10/04/20 docusate sodium 100 mg capsule 100 mg PO BID PRN PRN Constipation 10/04/20 #30 caps prednisone 20 mg tablet 60 mg (3 x 20 mg) PO DAILY 4 days 08/14/24 #12 tabs Allergies Allergy/AdvReac Type Severity Reaction Status Date / Time oxycodone HCl (From Percocet) AdvReac Intermediate Nausea, Unverified 08/14/24 09:07 vomiting fabric softner Allergy Mild Skin Rash Uncoded 08/14/24 09:07 environmental Allergy Other (See Uncoded 08/14/24 09:07 Comment) General Stated Complaint: RespSymp AARON: 3 Review of Systems All systems reviewed & are unremarkable except as noted in HPI and below Constitutional Constitutional: Reports chills, Reports fever(s) and Denies weakness Cardiovascular Cardiovascular: Denies chest pain and Denies dyspnea Respiratory Respiratory: Reports cough and Denies dyspnea Gastrointestinal Gastrointestinal: Denies abdominal pain, Denies nausea and Denies vomiting Integumentary/Breasts Skin/Breast: Denies rash Neurologic Neurologic: Denies weakness Exam Const General: no acute distress Orientation: alert HENMT Head: normal to inspection Ears: external ears normal General nose exam: external nose normal Mouth: moist mucous membranes Eyes General: appearance normal, both eyes and all related structures Neck Neck: normal visual inspection Resp Effort & Inspection: normal respiratory effort and able to speak in complete sentences Auscultation: wheezes Cardio Jugular venous pressure: no JVD Rate: regular rate Skin General skin exam: no rashes or lesions noted Neuro General: patient alert and patient oriented x3 Extrem General: normal to inspection Psych Mental Status: mental status grossly normal Course Vital Signs Vital signs: Vital Signs Temperature 36.9 C 08/14/24 09:04 Pulse 94 H 08/14/24 09:04 Respiratory Rate 18 08/14/24 09:04 Blood Pressure 117/75 08/14/24 09:04 Pulse Oximetry 98 08/14/24 09:04 Temperature 36.9 C 08/14/24 09:09 Temperature Source Oral 08/14/24 09:09 Pulse 94 H 08/14/24 09:09 Respiratory Rate 18 08/14/24 09:09 Respiratory Effort Normal, Non-Labored 08/14/24 09:31 Respiratory Depth Normal 08/14/24 09:31 Blood Pressure 117/75 08/14/24 09:09 Pulse Oximetry 98 08/14/24 09:09 Medical Decision Making 58-year-old female who denies any chronic milligrams comes in with 2 weeks of intermittently productive cough at the start having subjective fevers and chills yesterday. She denies any recent travel, denies any drug use. She is a non- smoker. She is speaking full sentences on exam. She has apical wheezing bilaterally otherwise clear lung sounds. Does have an intermittent harsh sounding cough. Normal posterior pharynx with midline uvula. I suspect respiratory infection, will check a Fluvid and chest x-ray. She overall appears well and has stable vitals so I doubt sepsis and do not feel any blood work is indicated. I will also provide an inhaler and prednisone and reassess. Patient feeling better. X-ray unremarkable, she is positive for flu A. She has had symptoms for over 48 hours so advised Tamiflu not indicated. She is stable for discharge and will follow-up with her PCP if not improving and return precautions given Differential Diagnosis Differential Diagnosis: COVID, flu, pneumonia, bronchitis Lab Data Lab results reviewed: Yes I reviewed the patient's lab results. Quality:[facility] Health Related Social Needs: No Data to Display PFS All Active Problems (Updated 08/14/24 @ 10:45 by Bam Murphy MD) Cough (Acute) Influenza (Acute) Medical History Endometriosis History of postoperative nausea and vomiting Mixed incontinence bladder not where it is supposed to be Surgical History Hx of carpal tunnel repair Oophrectomy, Right (~07/2010) R salpingo oophrectomy,L ovarian cystectomy for bilateral endometiomas S/P appendectomy S/P laparoscopic assisted vaginal hysterectomy (LAVH) Family History Mother Dementia Father Heart disease Social History Smoking/Tobacco Use Status: Never Smoking risk assessment performed?: Yes Alcohol Intake: current Alcohol Intake frequency: holidays/special occasions only Drug use: Never Substance use type: does not use Do you feel safe at home: Yes Do you feel safe in your relationship?: Yes PAWSS Have you Been Recently Intoxicated or Drunk Within the Last 30 days?: No Have you Ever Experienced Previous Episodes of Alcohol Withdrawal?: No Have you ever Experienced Withdrawal Seizures?: No Have you ever Experienced Delirium Tremens(DT)s?: No Have you ever undergone Alcohol Rehabilitation Treatment (i.e, inpt ot outpatient treatment programs)?: No Have you ever Experienced Blackouts?: No Have you ever Combined Alcohol with other Downers within the last 90 days?: No Have you ever Combined Alcohol with any other Substance of Abuse during the last 90 days?: No Positive Blood Alcohol level on Presentation? [PCS.BAL]: No Evidence of Increased Autonomic Activity (i.e. HR>120, tremor, sweating, agitation, nausea)?: No Result: 0
[2024-08-14] MEDS: Albuterol HFA 8 GM 60 PUFF INH IH (10:01)
[2024-08-14] MEDS: predniSONE 20 MG TAB 60 MG PO (10:01)
[2024-08-14] MEDS: Inhaler, Assist Device 1 EACH MC (10:02)
[2024-08-14 10:03] VITALS: BP 108/62; PULSE 86; RESP 14; O2SAT 94
[2024-08-14 10:17] LABS: COVID-19 PCR Negative (Negative); Influenza A PCR Positive (Negative); Influenza B PCR Negative (Negative); RSV PCR Negative (Negative)
[2024-08-14 10:18] LABS: Source Nasopharynx
--- OUTSIDE RECORDS SUMMARY | 2024-08-14 10:28 | XMS_ITS | Encounter Summary ---
Author Organization [facility] Address [address] [place] [address] Care Team Providers Care Bricklayer Tender Name Role Phone Adriana Villarreal Primary Care Provider Unavailab le Encounter Details Date Type Department Care Team (Late st Contact Info) Description 10/05/2020 Lab Requisition [facility] Pathology & Laboratory Medicine - [address] [phone] Outr Resulting Lab, Provider Social History Tobacco Use Types Packs/Day Years Used Date Smoking Tobacco: Never Assessed Comments Unknown Sex and Gender Information Value Date Recorded Sex Assigned at Not on file Legal Sex Female 18:42 EST Gender Identity Not on file Sexual Orientation Not on file documented as of this encounter Plan of Treatment Not on file documented as of this encounter Procedures Procedure Name Priority Date/Time Associated Diagnosis Comments OSMOLALITY, URINE Routine 10/04/2020 21: 09 EDT documented in this encounter Results * (ABNORMAL) OSMOLALITY, URINE (10/04/2020 21:09 EDT) Osmolality, Urine 113(L) 150-1,150 mOsm/kg 10/05/2020 17:13 EDT [facility] Urine URINE SPECIMEN COLLECTION, CLEAN CATCH / Unknown 10/04/2020 21:09 EDT 10/05/2020 16:41 EDT us Provider Outr Resulting Lab URINALYSIS ORDERABLE S Final Result [facility] [address] [place] [id number] documented in this encounter Visit Diagnoses Not on filedocumented in this encounter Additional Health Concerns Infection Onset Date Last Indicated Resolved Time COVID-19 07/29/2021 07/29/2021 08/18/2021 22:1 5 EST documented as of this encounter Care Teams Bricklayer Tender Relationship Specialty Start Date End Date Adriana Villarreal PA PCP - General 08/09/10 documented as of this encounter
--- OUTSIDE RECORDS SUMMARY | 2024-08-14 10:28 | XMS_ITS | Encounter Summary ---
Author Organization [facility] Address [address] [place] [address] Care Team Providers Care Certified Registered Nurse Practitioner Name Role Phone Adriana Villarreal Primary Care Provider Unavailab le Encounter Details Date Type Department Care Team (Late st Contact Info) Description 07/29/2021 Lab Requisition [facility] Pathology & Laboratory Medicine - [facility] [address], [place] [id number] Outr Resulting Lab, Provider Social History Tobacco [...] Procedure Name Priority Date/Time Associated Diagnosis Comments ZZCOVID-19 TEST [facility] PCR Today 07/29/2021 11:30 EST COVID-19 TESTING Routine 07/29/2021 11:3 0 EST documented in this encounter Results * COVID-19 TEST [facility] PCR (07/29/2021 11:30 EST) Swab 07/29/2021 11:3 0 EST 07/29/2021 21:15 EST us Provider Outr Resulting Lab MICROBIOLOGY - GENER AL ORDERABLES Final Result [facility] [address] [place] [address] * (ABNORMAL) COVID-19 TESTING (07/29/2021 11:30 EST) COVID-19 rt-PCR Result Positive( AA) Negative 07/30/2021 11:24 EST [facility] Comment: This test has not been FDA cleared or approved. This test has been authorized by FDA under an EUA for use by authorized laboratories. This test has been authorized only for detection of nucleic acid from 2019-nCoV, not for any other viruses or pathogens. This test is only authorized for the duration of the declaration that circumstances exist justifying the authorization of emergency use of in vitro diagnostic tests for detection and/or diagnosis of 2019-nCoV under section 564(b)(1) of Act, 21 U.S.C ?? 360bbb-3(b) (1), unless the authorization is terminated or revoked sooner. Testing was performed using the loren SARS-CoV-2 assay ([employer] on the Loren 6800 System Performing Lab Loren 6800 [facility] Lab 07/30/2021 11:24 EST [facility] Swab 07/29/2021 11:3 0 EST 07/29/2021 21:15 EST us Provider Outr Resulting Lab MICROBIOLOGY - GENER AL ORDERABLES Final Result [facility] [address] [place] [address] documented in this encounter Visit Diagnoses Not on filedocumented in this encounter Additional Health Concerns Infection Onset Date Last Indicated Resolved Time COVID-19 07/29/2021 07/29/2021 08/18/2021 22:1 5 EST documented as of this encounter Care Teams Certified Registered Nurse Practitioner Relationship Specialty Start Date End Date Adriana Villarreal PA PCP - General 08/09/10 documented as of this encounter
--- OUTSIDE RECORDS SUMMARY | 2024-08-14 10:28 | XMS_ITS | Encounter Summary ---
Author Organization [facility] Address [address] [place] [address] Care Team Providers Care Stock Preparer Name Role Phone Unavailable Primary Care Provider Unavailabl e Encounter Details Date Type Department Care Team (Late st Contact Info) Description 08/07/2010 Results Only [facility] Laboratory Services - [facility] ([facility]) [address] [place], [place] [id number] Harriett Johnson MD [address] [facility] [place] [address] Social History Tobacco Use Types Packs/Day Years [...] Procedure Name Priority Date/Time Associated Diagnosis Comments SURGICAL PATHOLOGY Routine 08/07/2010 0:00 EST documented in this encounter Results * SURGICAL PATHOLOGY (08/07/2010 0:00 EST) Pathology Report: SURGICAL PATHOLOGY REPORT ? Reports generated via electronic interface contain original data; ? however they are lacking the format of the original report. ? Caution should be taken when reading/interpreting unformatted reports. ? Name: ? LEDO, LSIA M ? Accession #: ? [id number] ? : ? 1965 (Age: 44) ??F ? Collect Date: ? 08/07/2010 ? Location: ? [facility] ? Receive Date: ? 08/08/2010 ? Provider: HARRIETT JOHNSON MD ? Copy to: NIC CHANEL PA ? Final Pathologic Diagnosis: ? A. ?Ovary and fallopian tube, right, unilateral salpingo-oophorectom y: ?? 1. ?Ovary: ? - Endometrioma. ?2. ?? Fallopian tube: ?- Endometriosis. ? - Walthard cell nest. ? B. ?? Ovarian cyst, left, excision: ? 1. ?? Endometriosis. ? 2. ?? Hemorrhagic corpus luteum. ? C. ?? Peritoneal adhesions, right, excision: ? 1. ?? Acute and recent hemorrhage with reactive myofibroblasts and ? mesothelium. ??See ? comment. ? D. ?Endometrium, curettings: ? 1. ?? Secretory endometrium. ? Comment: ? Histologic sections of the peritoneal adhesions (specimen C) demonstrate ?? predominantly a reactive mesothelium with underlying acute hemorrhage and ? hemosiderin-laden macrophages. ??There is no clear endometrial-type stroma or ? endometrial epithelium identified. ??Though all the required diagnostic feature ?? of endometriosis are not evident, given that endometriosis is identified in both the bilateral ovaries and the right fallopian tube, these features are ? suggestive of endometriosis of the peritoneum. ??Deeper levels of tissue were ? reviewed. ??This case was reviewed at the intradepartmental consultation ? conference. ??(Dr. Ramos) ? Document reviewed and electronically signed by: ? MARYLIN J RAMOS MD ? Report ??Date: 08/14/2010 14:53 ? By the signature above, the attending physician certifies that he/she has ? personally conducted a gross and/or microscopic examination of the described ? specimens and rendered or confirmed the above diagnosis. ? Specimen(s) Received: ? A. ?Right tube and ovary ? B. ? Left ovarian cysts ? C. ? Right peritoneal adhesions ? D. ? Endometrial curettings ? Clinical History: ? Right adnexal mass ? Intraoperative Interpretation: ? FS1. ??Right tube and ovary: ??Fibrous spindled cells and hemorrhage. ? Features consistent with endometriotic ?cyst or fibro/thecoma. Defer final diagnosis to permanents. ? Results were communicated to Dr. Johnson at 1:50 PM on 08/07/10 ??Dr. Sahara Watson; ?? 08/07/10 ? Gross Description: ? Received fresh labelled Ledo, Lisa and right tube and ovary is a 5.0 x 4.0 x 1.0 cm ovarian cyst which has an attached, 6.0 cm in length by 0.7 cm in diameter fallopian tube. ??The ovarian cyst is received opened and has a pale ? zaragoza-white, focally yellow-white and focally mildly hyperemic generally smooth to focally slightly roughened serosa. ??The inner lining is smooth to focally ? slightly wrinkled, pale zaragoza-white and focally hyperemic with no papillary ? excrescences or nodules. ??The cyst wall is firm, white, and ranges in thickness from 0.2 cm to 0.8 cm and sections reveal only a small focus of discernible ? residual ovarian parenchyma over an area measuring ranging from 1.0 cm. ??The ? serosa of the fallopian tube is zaragoza-brown and generally smooth and sections of ?? the fallopian tube are unremarkable. ??Two sales representative education courses sections of the ovarian cyst are submitted for frozen section analysis with the interpretation as ? rendered above. ??Tree And Shrub Worker sections of the specimen are submitted as ? follows: ? BLOCK ENRIQUE ? A1 ?Frozen section control ? A2-A5 ?Eight additional sections of ovarian cyst ? A6 ?Fallopian tube three sections ? Received in formalin labelled Ledo, Lisa and left ovarian cyst are two ? pieces of tissue. ??The largest measures 3.0 x 1.5 cm and ranges in thickness ? from 0.2 to 0.7 cm. ??One side of this piece of tissue is generally smooth, white to focally blue-mcnair while the opposite side is rough, zaragoza-red to focally ? zaragoza-yellow. ??The second piece of tissue measures 1.2 x 0.8 x 0.2 cm and is light zaragoza to zaragoza-red and focally white. ??There are no papillary excrescences or ? nodules. ??The specimen is entirely submitted as follows: ? BLOCK ENRIQUE ? B1 ?Intact smaller piece of tissue ? B2,B3 ?Largest piece of tissue sectioned into five sections ? Received in formalin labelled Monikao, Lisa and right peritoneal adhesions ?? are two dark red-zaragoza, slightly firm fragments of tissue which measure 1.5 x 0.9 x 0.6 cm and 1.2 x 1.0 x 0.7 cm. ??Each piece of tissue is bisected and the ? specimen is entirely submitted as (C1) and (C2). ? Received in formalin labelled Ledo, Lisa and endometrial curettings is a ?? 5.5 x 4.5 x 0.7 cm aggregate of multiple light zaragoza to zaragoza-white, firm to focally soft fragments of tissue admixed with are submitted as blood clot and ? hemorrhagic mucinous material. ??The specimen is entirely submitted as (D1) ? through (D6). ??(J. Tessitore)/cjh ? End of Report ? [facility] 08/07/2010 08/08/2010 8:5 1 EST us Harriett Johnson MD PATHOLOGY ORDERABLES Final Re sult [facility] [address] [place] [address] documented in this encounter Visit Diagnoses Not on filedocumented in this encounter
--- OUTSIDE RECORDS SUMMARY | 2024-08-14 10:28 | XMS_ITS | Encounter Summary ---
Author Organization [facility] Address [address] [place] [address] Care Team Providers Care Middle [employer] Professional Name Role Phone Adriana Villarreal Primary Care Provider Unavailab le Encounter Details Date Type Department Care Team (Late st Contact Info) Description 09/07/2019 Lab Requisition [facility] Pathology & Laboratory Medicine - [address] [address] Unknown, Provider, Social History Tobacco Use Types Packs/Day Years [...] Procedure Name Priority Date/Time Associated Diagnosis Comments HEPATITIS C AB W REFLEX TO HCV RNA BY PCR Routine 09/06/2019 11:50 EST documented in this encounter Results * HEPATITIS C AB W REFLEX TO HCV RNA BY PCR (09/06/2019 11:50 EST) Hep C Antibody Negative Negative 09/08/2019 10:52 EST [facility] Blood VENOUS BLOOD / Unknown 09/06/2019 11:50 EST 09/07/2019 15:43 EST us Provider Unknown CHEMISTRY & BLOOD GAS ORDERA BLES Final Result [facility] [address] [place] [address] documented in this encounter Visit Diagnoses Not on filedocumented in this encounter Additional Health Concerns Infection Onset Date Last Indicated Resolved Time COVID-19 07/29/2021 07/29/2021 08/18/2021 22:1 5 EST documented as of this encounter Care Teams [employer] Professional Relationship Specialty Start Date End Date Adriana Villarreal PA PCP - General 08/09/10 documented as of this encounter
--- OUTSIDE RECORDS SUMMARY | 2024-08-14 10:28 | XMS_ITS | Encounter Summary ---
Author Organization [facility] Address [address] [place] [address] Care Team Providers Care Admission Nurse Name Role Phone Unavailable Primary Care Provider Unavailabl e Encounter Details Date Type Department Care Team (Late st Contact Info) Description 09/24/2007 Results Only [facility] [address] [place] [address] Aurelia Strong, [facility] [address] [place] [address] [place] [address] Social History Tobacco Use Types Packs/Day Years [...] Procedure Name Priority Date/Time Associated Diagnosis Comments CYTOPATHOLOGY Routine 09/24/2007 0:00 EDT documented in this encounter Results * CYTOPATHOLOGY (09/24/2007 0:00 EDT) Pathology Report: CYTOPATHOLOGY REPORT Reports generated via electronic interface contain original data; however they are lacking the format of the original report. Caution should be taken when reading/interpreti ng unformatted reports. Name: ? LISA CALLOWAY ? Accession #: ? [id number] : ? 1965 (Age: 42) ??F ?Collect Date: ? 09/24/2007 Location: ? [facility] ? Receive Date: ? 09/27/2007 Provider: ?AURELIA STRONG HVAC INSTALLATION TECHNICIAN Copy to: ? Specimen/Source: ?ThinPrep Pap Test, Cervix/Endocervix, processed on Butlr ThinPrep Imaging System, with manual evaluation Last Menstrual Period: ? 09/09/07 Other: ? HPVA - HPV testing requested if ASC-US on the current ThinPrep Pap test. ? SPECIMEN ADEQUACY ? Satisfactory for Evaluation - transformation zone component present GENERAL CATEGORIZATION ? Negative for Intraepithelial Lesion or Malignancy ? Document reviewed and electronically signed by: ? Janell Harris, CAROLANN(ASCP) ? Report Date: ??09/30/2007 13:42 End of Report MARILYN GODINEZ 09/24/2007 09/27/2007 us Aurelia Strong HVAC INSTALLATION TECHNICIAN PATHOLOGY ORDERABLES Final R esult [facility] [address] [place] [address] documented in this encounter Visit Diagnoses Not on filedocumented in this encounter
--- OUTSIDE RECORDS SUMMARY | 2024-08-14 10:28 | XMS_ITS | Encounter Summary ---
Author Organization [facility] Address [address] [place] [address] Care Team Providers Care Certified Orthotist Name Role Phone Adriana Villarreal Primary Care Provider Unavailab le Encounter Details Date Type Department Care Team (Late st Contact Info) Description 10/03/2020 Lab Requisition [facility] Pathology & Laboratory Medicine - [facility] [address] [place] [address] Rama Denny [address] [place] [address] [place] [address] Encounter for other general examination Social History Tobacco Use Types Packs/Day Years [...] Priority Date/Time Associated Diagnosis Comments SURGICAL PATHOLOGY Today 10/03/2020 10 :48 EDT Encounter for other general examination documented in this encounter Results * SURGICAL PATHOLOGY (10/03/2020 10:48 EDT) Final Diagnosis A. UTERUS, CERVIX, LEFT FALLOPIAN TUBE, HYSTERECTOMY AND LEFT SALPINGECTOMY: - Endometrium: - Inactive endometrium. - Focal scarring suggestive of prior ablation/procedur e. - Myometrium: - No specific pathologic features. - Cervix: - Features consistent with prolapse. - Serosa: - Adhesions. - Fallopian tube, left: - No specific pathologic features. B. APPENDIX, APPENDECTOMY: - Dilated appendix lumen with fecalith. - Focal active mucosal inflammation. 10/08/2020 16:41 [facility] Attestation There was significant resident/fellow involvement in the diagnostic evaluation of this case. By the signature below, the attending physician certifies that they have personally conducted a gross and/or microscopic examination of the described specimens and rendered or confirmed the above diagnosis. 10/08/2020 16:41 [facility] at 1641 Clinical History Uterine prolapse, appendicitis 10/08/2020 16:41 [facility] Gross Description A. Received in formalin labelled with proper patient identification (initials L, L) and uterus, cervix, left fallopian tube is an intact uterus and cervix (40 g, 6.2 cm cervix to fundus by 3.5 cm cornu to cornu by 2.8 cm anterior to posterior) with a detached fimbriated fallopian tube (5.5 cm in length by 0.4 cm in diameter). The uterine serosa is zaragoza purple and dull with ragged adhesions. The ectocervical mucosa is zaragoza-white with petechiae and a patent slit-like os. The endocervix has an unremarkable herringbone pattern. The endometrial cavity has a stellate white fibrotic scar within the left cornu. The endometrium is zaragoza-white and scarred with an average thickness of 0.1 cm. The myometrium is trabeculated with an average thickness of 1.1 cm. No lesions or nodules are identified. Plant Custodian sections are submitted as follows: BLOCK ENRIQUE A1- anterior cervix A2- anterior endomyometrium A3- posterior cervix A4- posterior endomyometrium A5- longitudinally bisected fimbria and 1 cross section B. Received in formalin labelled with proper patient identification (initials L, L) and appendix is a vermiform appendix (5.5 cm in length by 0.5-0.9 cm in diameter). The proximal base margin is inked. The serosa is zaragoza-mcnair with prominent vasculature. The cut surfaces show a slightly dilated lumen filled with a fecalith. A definitive perforation site is not identified. The proximal base margin, en face, half of the longitudinally bisected tip and 2 cross sections are submitted in B1. TOBI CARROLL(ASCP) 10/04/2020 13:58 10/08/2020 16:41 EDT [facility] Resident/Eduardo w: Kiara Hong MD 10/08/2020 16:41 EDT [facility] Performing Lab [facility] 10/08/2020 16:41 EDT [facility] Scanned Images 10/08/2020 16:41 EDT [facility] Tissue ENTIRE APPENDIX / Unknown 10/03/2020 10:48 EDT 10/03/2020 16:23 EDT Tissue specimen (specimen) APPENDIX STRUCTURE / Unknown 10/03/2020 10:48 EDT 10/03/2020 16:23 EDT Rama Denny PATHOLOGY ORDERABLES Final Resul t [facility] [address] [place] [address] documented in this encounter Visit Diagnoses Diagnosis Encounter for other general examination documented in this encounter Additional Health Concerns Infection Onset Date Last Indicated Resolved Time COVID-19 07/29/2021 07/29/2021 08/18/2021 22:1 5 EST documented as of this encounter Care Teams Certified Orthotist Relationship Specialty Start Date End Date Adriana Villarreal PA PCP - General 08/09/10 documented as of this encounter
--- OUTSIDE RECORDS SUMMARY | 2024-08-14 10:28 | XMS_ITS | Encounter Summary ---
Author Organization [facility] Address [address] [place] [address] Care Team Providers Care Grievance Coordinator Name Role Phone Adriana Villarreal Primary Care Provider Unavailab le Encounter Details Date Type Department Care Team (Latest Contact Info) Description 09/07/2019 Lab Requisition [facility] Pathology & Laboratory Medicine - [facility] [address] [place] [address] Alejandrina Sherwood, MILK ROUTE DELIVERER [address] [facility] [address] [place] [phone] Encounter for general adult medical examination without abnormal findings; Encounter for screening for malignant neoplasm of cervix; Encounter for gynecological examination (general) (routine) without abnormal findings Social History Tobacco Use Types Packs/Day Years [...] Procedure Name Priority Date/Time Associated Diagnosis Comments PAP TEST Today 09/06/2019 11:45 EST Encounter for general adult medical examination without abnormal findings Encounter for screening for malignant neoplasm of cervix Encounter for gynecological examination (general) (routine) without abnormal findings HPV DNA DETECTION WITH GENOTYPING, PCR Today 09/06/2019 11:45 EST Encounter for general adult medical examination without abnormal findings Encounter for screening for malignant neoplasm of cervix Encounter for gynecological examination (general) (routine) without abnormal findings documented in this encounter Results * HUMAN PAPILLOMAVIRUS (HPV) DETECTION-HIGH RISK TYPES (09/06/2019 11:45 EST) HPV other High Risk types, PCR Negative Negative 09/16/2019 15:20 [facility] Comment:No E6 or E7 mRNA is detected from HPV types 16,18,31,33,35,39,45,51,52,56,58,59,66, and 68 by harness tier mediated amplification. Papanicolaou smear specimen (specimen) CERVIX UTERI STRUCTURE / Unknown 09/06/2019 11:45 EST 09/14/2019 14:53 EST us Alejandrina Sherwood MILK ROUTE DELIVERER MICROBIOLOGY - GENERAL OR DERABLES Final Result [facility] [address] [place] [address] * PAP TEST (09/06/2019 11:45 EST) Specimens A. Cervix and/or Endocervix, , ThinPrep Imaging System with Manual Evaluation 09/16/2019 15:20 [facility] Specimen Adequacy Satisfactory for Evaluation - transformation zone component present 09/16/2019 15:20 [facility] General Categorization Negative for intraepithelial lesion or malignancy 09/16/2019 15:20 [facility] Attestation By the signature below, the attending physician certifies that they have personally conducted a gross and/or microscopic examination of the described specimens and rendered or confirmed the above diagnosis. 09/16/2019 15:20 [facility] at 1520 Clinical History NONE 09/16/19 20 15:20 [facility] HPV The result for the Human Papillomavirus (HPV) Detection-High Risk Types is Negative. No E6 or E7 mRNA is detected from HPV types 16,18,31,33,35,39 ,45,51,52,56,58,5 9,66, and 68 by harness tier mediated amplification.Ana Paula ting was performed on specimen [id number] and was resulted on 09/16/2019 1500 EST by RAMÍREZ, LAB INSTRUMENT RESULTS IN 09/16/2019 15:20 EST [facility] Scanned Images 09/16/2019 15:20 EST [facility] Papanicolaou smear specimen (specimen) CERVIX UTERI STRUCTURE / Unknown 09/06/2019 11:45 EST 09/07/2019 16:04 EST us Alejandrina Sherwood MILK ROUTE DELIVERER PATHOLOGY ORDERABLES Ana burnett Result [facility] [address] [place] [address] documented in this encounter Visit Diagnoses Diagnosis Encounter for general adult medical examination without abnormal findings Unspecified general medical examination Encounter for screening for malignant neoplasm of cervix Screening for malignant neoplasm of the cervix Encounter for gynecological examination (general) (routine) without abnormal findings documented in this encounter Additional Health Concerns Infection Onset Date Last Indicated Resolved Time COVID-19 07/29/2021 07/29/2021 08/18/2021 22:1 5 EST documented as of this encounter Care Teams Grievance Coordinator Relationship Specialty Start Date End Date Adriana Villarreal PA PCP - General 08/09/10 documented as of this encounter
--- OUTSIDE RECORDS SUMMARY | 2024-08-14 10:28 | XMS_ITS | Encounter Summary ---
Author Organization [facility] Address [address] [place] [address] Care Team Providers Care Larry Operator Name Role Phone Unavailable Primary Care Provider Unavailabl e Encounter Details Date Type Department Care Team (Late st Contact Info) Description 10/25/2007 Results Only [facility] [address] [place] [address] Marion Espinosa MD [address] [place] [phone] Social History Tobacco Use Types Packs/Day Years [...] Date/Time Associated Diagnosis Comments SURGICAL PATHOLOGY Routine 10/25/2007 0:00 EDT documented in this encounter Results * SURGICAL PATHOLOGY (10/25/2007 0:00 EDT) Pathology Report: SURGICAL PATHOLOGY REPORT Reports generated via electronic interface contain original data; however they are lacking the format of the original report. Caution should be taken when reading/interpreti ng unformatted reports. Name: ? LISA CALLOWAY ? Accession #: ? [id number] ? : ? 1965 (Age: 42) ??F ? Collect Date: ? 10/25/2007 ? Location: ? [facility] ? Receive Date: ? 10/25/2007 ? Provider: MARION ESPINOSA MD Copy to: ? Final Pathologic Diagnosis: ? Endometrium, biopsy: 1. ?Secretory endometrium (day 20-22). 2. ? No hyperplasia identified. Document reviewed and electronically signed by: CARA SWENSON MD Report ??Date: 10/27/2007 16:14 By the signature above, the attending physician certifies that he/she has personally conducted a gross and/or microscopic examination of the described specimens and rendered or confirmed the above diagnosis. Specimen(s) Received: ? Endometrium Clinical History: ? Menorrhagia x 5 mos Gross Description: ? Received in formalin labelled Ledo and endometrium is a 3.5 x 2.5 x 1.4 cm aggregate of zaragoza to hemorrhagic tissue fragments. ??The specimen is entirely submitted as (A1) through (A5). ??(Dr. Sahni)/susan End of Report [facility] 10/25/2007 10/25/2007 11: 47 EDT us Marion Espinosa MD PATHOLOGY ORDERABLES Final Res ult [facility] [address] [place] [address] documented in this encounter Visit Diagnoses Not on filedocumented in this encounter
--- OUTSIDE RECORDS SUMMARY | 2024-08-14 10:28 | XMS_ITS | Encounter Summary ---
Author Organization [facility] Address [address] [place] [address] Care Team Providers Care Can Crimper Name Role Phone Adriana Villarreal Primary Care Provider Unavailab le Encounter Details Date Type Department Care Team (Late st Contact Info) Description 01/02/2014 Results Only [facility] Laboratory Services - [facility] [address] [place], [place] [id number] Aurelia Strong, [facility] [address] [place] [address] Social History Tobacco Use Types [...] Name Priority Date/Time Associated Diagnosis Comments PAP TEST- RESULT ONLY Routine 01/02/2014 0:00 EDT documented in this encounter Results * PAP TEST- RESULT ONLY (01/02/2014 0:00 EDT) Pathology Report: CYTOPATHOLOGY REPORT Reports generated via electronic interface contain original data; however they are lacking the format of the original report. Caution should be taken when reading/interpreti ng unformatted reports. Name: ? LISA CALLOWAY ? Accession #: ? [id number] ? : ? 1965 (Age: 48) ??F ?Collect Date: ? 01/02/2014 ? Location: ? [facility] ? Receive Date: ? 01/03/2014 ? Provider: AURELIA STRONG HEAD OF SALES Copy to: ? Final Report SPECIMEN ADEQUACY ? Satisfactory for Evaluation - transformation zone component present GENERAL CATEGORIZATION ? Negative for Intraepithelial Lesion or Malignancy ?? Last Menstrual Period: 2011 Specimen/Source: ??Pap Test, Cervix/Endocervix, ThinPrep Imaging System with manual evaluation Document reviewed and electronically signed by: ? Charline Alcaraz, CAROLANN(ASCP) ? Report ??Date: 01/11/2014 14:37 HPV with Pap Test ? Date Ordered: ? 01/11/2014 ? Status: ?? Signed Out ?Date Complete: ? 01/13/2014 ? By: ??System Interface ? Date Reported: ? 01/13/2014 ? Interpretation RESULT: Negative for HPV. No E6 or E7 mRNA is detected from HPV types 16,18,31,33,35, 39,45,51,52,56,58, 59,66, and 68 by circuit board assembler mediated amplification. Comments Document reviewed and electronically signed by: ? System Interface ? Report date: 01/13/2014 By the signature above, the attending physician certifies that he/she has personally conducted a gross and/or microscopic examination of the described specimens and rendered or confirmed the above diagnosis. End of Report [facility] 01/02/2014 01/03/2014 us Aurelia Strong HEAD OF SALES PATHOLOGY ORDERABLES Final R esult Performing Organization Address City/State/[facility] Co de Phone Number [facility] [address] [place] [address] documented in this encounter Visit Diagnoses Not on filedocumented in this encounter Care Teams Can Crimper Relationship Specialty Start Date End Date Adriana Villarreal PA PCP - General 08/09/10 documented as of this encounter
--- OUTSIDE RECORDS SUMMARY | 2024-08-14 10:28 | XMS_ITS | Referral Summary ---
Author Organization [facility] Address [address] [place] [address] Care Team Providers Care Milk Sampler Name Role Phone Adriana Villarreal Primary Care Provider Unavailab le Social History Tobacco Use Types Packs/Day Years Used Date Smoking Tobacco: Never Assessed Comments Unknown Sex and Gender Information Value Date Recorded Sex Assigned at Not on file Legal Sex Female 18:42 EST Gender Identity Not on file Sexual Orientation Not on file Plan of Treatment Not on file Procedures Procedure Name Priority Date/Time Associated Diagnosis Comments HEPATITIS C AB W REFLEX TO HCV RNA BY PCR Routine 09/06/2019 11:50 EST from Last 3 Months or Most Recently Relevant to Health Maintenance Results * HEPATITIS C AB W REFLEX TO HCV RNA BY PCR (09/06/2019 11:50 EST) Hep C Antibody Negative Negative 09/08/2019 10:52 EST [facility] Blood VENOUS BLOOD / Unknown 09/06/2019 11:50 EST 09/07/2019 15:43 EST us Provider Unknown MD CHEMISTRY & BLOOD GAS ORDERA BLES Final Result [facility] [address] [place] [address] from Last 3 Months or Most Recently Relevant to Health Maintenance Insurance [facility] Address: [address] [address] Care Teams Milk Sampler Relationship Specialty Start Date End Date Adriana Villarreal PA PCP - General 08/09/10
--- OUTSIDE RECORDS SUMMARY | 2024-08-14 10:28 | XMS_ITS | Encounter Summary ---
Author Organization [facility] Address [address] [place] [address] Care Team Providers Care Credit Intern Name Role Phone Unavailable Primary Care Provider Unavailabl e Encounter Details Date Type Department Care Team (Late st Contact Info) Description 06/13/2010 Results Only [facility] Laboratory Services - [facility] ([facility]) [address] [place], [place] [id number] Aurelia Strong, [facility] [address] [place] [address] [place] [address] Social History Tobacco Use Types [...] Priority Date/Time Associated Diagnosis Comments CYTOPATHOLOGY Routine 06/13/2010 0:00 EST documented in this encounter Results * CYTOPATHOLOGY (06/13/2010 0:00 EST) Pathology Report: CYTOPATHOLOGY REPORT ? Reports generated via electronic interface contain original data; ? however they are lacking the format of the original report. ? Caution should be taken when reading/interpreti ng unformatted reports. ? Name: ? LISA CALLOWAY ? Accession #: ? [id number] ? : ? 1965 (Age: 44) ??F ?Collect Date: ? 06/13/2010 ? Location: ? [facility] ? Receive Date: ? 06/14/2010 ? Provider: ?AURELIA LORETA REGULATORY SUBMISSIONS ASSOCIATE ? Copy to: ? Specimen/Source: ?Pap Test, Cervix/Endocervix, ThinPrep Imaging System ? with manual evaluation ? Last Menstrual Period: ? 11/7/10 ? Hormonal/Contracep tive Status: ? Condoms ? Other: ? Additional clinical information: paps on file WNL ? SPECIMEN ADEQUACY ? Satisfactory for Evaluation ? - transformation zone component present ? GENERAL CATEGORIZATION ? Negative for Intraepithelial Lesion or Malignancy ? Document reviewed and electronically signed by: ? Charline Lissa, CT(ASCP) ? Report Date: ??06/19/2010 09:45 ? End of Report ? [facility] 06/13/2010 06/14/2010 us Aurelia Strong REGULATORY SUBMISSIONS ASSOCIATE PATHOLOGY ORDERABLES Final R esult [facility] [address] [place] [address] documented in this encounter Visit Diagnoses Not on filedocumented in this encounter
--- OUTSIDE RECORDS SUMMARY | 2024-08-14 10:28 | XMS_ITS | Encounter Summary ---
Author Organization [facility] [place] [address] [place] [address] Care Team Providers Care Refrigeration Service Inspector Name Role Phone Alejandrina Sherwood APRN Primary Care Provider [phone] Reason for Referral * Consultation (Routine) - Closed Specialty Diagnoses / Procedures Referred By Yasmine kovacs Referred To Contact Dermatology Diagnoses Rash Alejandrina Sherwood APRN [address] [place] [address] [facility] [address] [place] [address] Referral ID Status Reason Start Date Expiration Date V isits Requested Visits Authorized [id number] Closed Consult, Test & Treat PCP Updated and/or Approved 03/03/2022 03/03/2023 12 12 Encounter Details Date Type Department Care Team (Late st Contact Info) Description 03/03/2022 Transcribe Orders eDH Incoming Referrals [phone] Alejandrina Sherwood APRN [address] [place], [place] [id number] Rash Social History Tobacco Use Types Packs/Day Years Used Date Smoking Tobacco: Never Assessed Sex and Gender Information Value Date Recorded Sex Assigned at Not on file Gender Identity Not on file Sexual Orientation Not on file documented as of this encounter Plan of Treatment Scheduled Referrals Name Type Priority Associated Diagnoses Order Schedule Referral to Dermatology Outpatient Referral Routine Rash Ordered: 03/03/2022 documented as of this encounter Visit Diagnoses Diagnosis Rash Rash and other nonspecific skin eruption documented in this encounter Care Teams Refrigeration Service Inspector Relationship Specialty Start Date End Date Alejandrina Sherwood APRN [address] [place] [address] PCP - General Family Medicine 03/03/22 documented as of this encounter
--- OUTSIDE RECORDS SUMMARY | 2024-08-14 10:28 | XMS_ITS | Encounter Summary ---
Author Organization [facility] Address [address] [place] [address] Care Team Providers Care People Greeter Name Role Phone Adriana Villarreal Primary Care Provider Unavailab le Encounter Details Date Type Department Care Team (Late st Contact Info) Description 08/12/2011 Results Only [facility] - [facility] ([facility]) [address] [place], [place] [id number] Harriett Johnson MD [address] [facility] [place] [address] Social History Tobacco Use Types [...] Diagnosis Comments PAP TEST- RESULT ONLY Routine 08/12/2011 0:00 EST documented in this encounter Results * PAP TEST- RESULT ONLY (08/12/2011 0:00 EST) Pathology Report: CYTOPATHOLOGY REPORT Reports generated via electronic interface contain original data; however they are lacking the format of the original report. Caution should be taken when reading/interpreti ng unformatted reports. Name: ? LISA CALLOWAY ? Accession #: ? [id number] : ? 1965 (Age: 45) ??F ?Collect Date: ? 08/12/2011 Location: ? [facility] ? Receive Date: ? 08/13/2011 Provider: ?HARRIETT JOHNSON MD Copy to: ? Specimen/Source: ?Pap Test, Cervix/Endocervix, ThinPrep Imaging System with manual evaluation Last Menstrual Period: ? 08/01/2011 ? SPECIMEN ADEQUACY ? Satisfactory for Evaluation - transformation zone component present GENERAL CATEGORIZATION ? Negative for Intraepithelial Lesion or Malignancy ? Document reviewed and electronically signed by: ? CAROLANN Fleming(ASCP) ? Report Date: ??08/15/2011 09:33 End of Report [facility] 08/12/2011 08/13/2011 us Harriett Johnson MD PATHOLOGY ORDERABLES Final Re sult [facility] [address] [place] [address] documented in this encounter Visit Diagnoses Not on filedocumented in this encounter Care Teams People Greeter Relationship Specialty Start Date End Date Adriana Villarreal PA PCP - General 08/09/10 documented as of this encounter
--- OUTSIDE RECORDS SUMMARY | 2024-08-14 10:28 | XMS_ITS | Clinical Summary ---
Author Organization [facility] Address [address] [place] [address] Care Team Providers Care Information Architect Name Role Phone Adriana Villarreal Primary Care Provider Unavailab le Social History Tobacco Use Types Packs/Day Years Used Date Smoking Tobacco: Never Assessed Comments Unknown Sex and Gender Information Value Date Recorded Sex Assigned at Not on file Legal Sex Female 18:42 EST Gender Identity Not on file Sexual Orientation Not on file Plan of Treatment Health Maintenance Due Date Last Done Comments Hepatitis B Vaccine (1 of 3 - 19+ 3-dose series) 09/10 COVID-19 Vaccine ( season) 2024 Hepatitis C Screen Completed 09/06/2019 Procedures Procedure Name Priority Date/Time Associated Diagnosis Comments HEPATITIS C AB W REFLEX TO HCV RNA BY PCR Routine 09/06/2019 11:50 EST from Last 3 Months or Most Recently Relevant to Health Maintenance Results * HEPATITIS C AB W REFLEX TO HCV RNA BY PCR (09/06/2019 11:50 EST) Hep C Antibody Negative Negative 09/08/2019 10:52 EST [facility] Blood VENOUS BLOOD / Unknown 09/06/2019 11:50 EST 09/07/2019 15:43 EST us Provider Unknown CHEMISTRY & BLOOD GAS ORDERA BLES Final Result [facility] [address] [place] [address] from Last 3 Months or Most Recently Relevant to Health Maintenance Insurance [facility] Care Teams Information Architect Relationship Specialty Start Date End Date Adriana Villarreal PA PCP - General 08/09/10
--- OUTSIDE RECORDS SUMMARY | 2024-08-14 10:28 | XMS_ITS | Encounter Summary ---
Author Organization [facility] Address [address] [place] [address] Care Team Providers Care Orthotic/Prosthetic Practitioner Name Role Phone Adriana Villarreal Primary Care Provider Unavailab le Encounter Details Date Type Department Care Team (Late st Contact Info) Description 02/10/[address] [facility] Pathology & Laboratory Medicine - [facility] [address] [place], [place] [id number] Outr Resulting Lab, Provider Social History Tobacco [...] Procedure Name Priority Date/Time Associated Diagnosis Comments SS-B (LA) ANTIBODY, IGG Routine 02/10/2022 10:30 EDT ZZ[facility] SSA ANTIBODIES BY KAIT Routine 02/10/2022 10:30 EDT LYME AB Routine 02/10/2022 10:30 EDT ANTI NUCLEAR AB (CHRISTINE), IFA Routine 02/10/2022 10:30 EDT documented in this encounter Results * LYME AB (02/10/2022 10:30 EDT) Lyme Ab Negative Negative 02/11/2022 10:58 EDT [facility] Blood VENOUS BLOOD / Unknown 02/10/2022 10:30 EDT 02/10/2022 21:36 EDT us Provider Outr Resulting Lab IMMUNOLOGY AND SEROL OGY ORDERABLES Final Result Performing Organization Address [facility] de Phone Number [facility] [address] [place] [address] * SSB ANTIBODIES BY KAIT (02/10/2022 10:30 EDT) SSB Antibody 1.3 <20.0 Units 02/11/2022 13:41 EDT [facility] Comment: ? Negative: <20.0 Units ? Weak Positive: 20.0 - 39.9 Units ? Moderate Positive: 40.0 - 80.0 Units ? Strong Positive: >80.0 Units Results were obtained with the [employer] QUANTA Lite SS-B KAIT. ??SS-B values obtained with different manufacturers' assay methods may not be used interchangeably. ??The magnitude of the reported IgG levels cannot be correlated to an endpoint titer. Blood VENOUS BLOOD / Unknown 02/10/2022 10:30 EDT 02/10/2022 21:36 EDT us Provider Outr Resulting Lab IMMUNOLOGY AND SEROL OGY ORDERABLES Final Result Performing Organization Address [facility] de Phone Number [facility] [address] [place] [address] * SSA ANTIBODIES BY KAIT (02/10/2022 10:30 EDT) SSA Antibody 1.2 <20.0 Units 02/11/2022 15:33 EDT [facility] Comment: ? Negative: <20.0 Units ? Weak Positive: 20.0 - 39.9 Units ? Moderate Positive: 40.0 - 80.0 Units ? Strong Positive: >80.0 Units Results were obtained with the [employer] QUANTA Lite SS-A KAIT. ??SS-A values obtained with different manufacturers' assay methods may not be used interchangeably. ??The magnitude of the reported IgG levels cannot be correlated to an endpoint titer. Blood VENOUS BLOOD / Unknown 02/10/2022 10:30 EDT 02/10/2022 21:36 EDT us Provider Outr Resulting Lab IMMUNOLOGY AND SEROL OGY ORDERABLES Final Result Performing Organization Address [facility] Co de Phone Number [facility] [address] [place] [address] * ANTI NUCLEAR AB (CHRISTINE), IFA (02/10/2022 10:30 EDT) CHRISTINE Interpretation Negative Negative 2021 15:21 EDT [facility] Comment:No titer performed, CHRISTINE Screen is negative. Blood VENOUS BLOOD / Unknown 02/10/2022 10:30 EDT 02/10/2022 21:36 EDT Narrative [facility] - 02/11/2022 15:21 EDT Results were obtained with the [employer] NOVA Lite HEp-2 CHRISTINE Kit by indirect immunofluorescence. us Provider Outr Resulting Lab IMMUNOLOGY AND SEROL OGY ORDERABLES Final Result Performing Organization Address [facility] Co de Phone Number [facility] [address] [place] [address] documented in this encounter Visit Diagnoses Not on filedocumented in this encounter Care Teams Orthotic/Prosthetic Practitioner Relationship Specialty Start Date End Date Adriana Villarreal PA PCP - General 08/09/10 documented as of this encounter
--- OUTSIDE RECORDS SUMMARY | 2024-08-14 10:28 | XMS_ITS | Clinical Summary ---
Author Organization [place] [address] Care Team Providers Care Cold Header Name Role Phone Alejandrina Sherwood CULLEN Primary Care Provider [phone] Social History Tobacco Use Types Packs/Day Years Used Date Smoking Tobacco: Never Assessed Sex and Gender Information Value Date Recorded Sex Assigned at Not on file Gender Identity Not on file Sexual Orientation Not on file Plan of Treatment Health Maintenance Due Date Last Done Comments CT Colonography 1965 Colonoscopy 1965 Colorectal Cancer Screening 1965 FIT DNA 1965 FIT 1965 Sigmoidoscopy (10 year) with FIT yearly 1965 Sigmoidoscopy 1965 HIV screen 1982 Hepatitis C Screening 1982 Hepatitis B vaccine (0-59 yrs) (1) 09/11/1983 Tetanus/Diphtheria/Pertussis Vaccines (1 - Tdap) 09/10 HPV test 1994 PAP Smear 1994 Breast Cancer Share Decision Needed 2004 Breast Cancer screening 2004 Pneumoccocal Vaccine: 50+ (1 of 1 - PCV) 2014 Zoster vaccine (1 of 2) 2014 Advance Directive 09/11/2019 Covid-19 Vaccine ( - 2023-25 season) 2024 Influenza (Flu) vaccine (1 o f 1 - Influenza standard series) 03/13/2024 Care Teams Cold Header Relationship Specialty Start Date End Date Alejandrina Sherwood APRN [address] [place], [place] [id number] PCP - General Family Medicine 03/03/22
== END 2024-08-14 10:50 | disposition home or self-care (01) ==
PROVIDERS: Emergency Provider Emergency Medicine; PCP Nurse Practitioner Family
DX: J10.1 Influenza due to other identified influenza virus with other respiratory manifestations (principal); R05.9 Cough, unspecified
CPT/HCPCS: 87637; 99284; 71046; 99283; J7512

== ENCOUNTER 2024-08-15 06:36 | Emergency (ER) | payer BC, SELFPAY ==
[2024-08-15] VITALS (13 sets, daily range): BP systolic 104–128; BP diastolic 49–61; PULSE 68–82; RESP 13–19; TEMP 35.1–36.4; O2SAT 91–96
--- NOTE | 2024-08-15 06:30 | RT.EKG_ITS ---
APPROVED REPORT Exam: Resting ECG Reason for Exam: FALL Patient Location: E HR:69 bpm ECG Measurements Heart Rate 69 AXIS GA 162 P 58 QRSd 93 QRS 11 QT 426 T 48 QTc 456 Conclusion Sinus rhythm...normal P axis, V-rate 60- [address] segment or T wave abnormalities to suggest occlusive SD
--- NOTE | 2024-08-15 07:01 | ED.GENADUL_ITS ---
Discharge Plan Disposition Patient Disposition: Home Discharge Details Clinical Impression: Influenza, Hx of falling, Facial laceration Primary Care Provider: Alejandrina Sherwood ED Provider: Feng Mcwilliams Home Meds and New Rx's Prescriptions: Continued estradiol 0.01 % (0.1 mg/gram) cream 1 g vaginal .COMPLEX Qty: 42.5 2RF Rx Instructions: 1 g vaginal 3 times weekly at bedtime multivitamin [Daily Multi-Vitamin] 1 EACH tablet 1 ea PO DAILY calcium carb, citrate-vit D3 1 EACH tablet extended release 1 ea PO DAILY pizvonwlpon-J2-Jlfjllsal serr [Osteo Bi-Flex (5-Loxin)] 1 EACH tablet 1 ea PO DAILY Estroven Maximum Strength 400 MCG tablet 400 mcg PO BID Vgbbuzfad-Fdctpcboi-Ddndlix C 1 EACH tablet 1 ea PO BID ylfcb-cu-8-vpk-qzf-ijjjgjo-ast [krill oil] 1 EACH capsule 1 ea PO DAILY turmeric 400 mg Capsule 1,000 mg PO DAILY ibuprofen 600 mg Tablet 600 mg PO Q6H PRN Acetaminophen [Tylenol] 1,000 mg PO Q6H PRN PRNQty: 30 0RF docusate sodium 100 mg capsule 100 mg PO BID PRN PRN (Reason: Constipation) Qty: 30 0RF prednisone 20 mg tablet 60 mg PO DAILY 4 Days Qty: 12 0RF Discharge Instructions Instructions: Laceration Repair With Stitches ED Additional Instructions: You are seen in the emergency department following a fall. Your CAT scan showed no sign of any bleeding in your head. Your chest x-ray showed no sign of a collapsed lung. If you have concerns about how your eyes feeling please call the ophthalmology team at [facility] in [facility]: [phone]. You were seen in the emergency department for your right facial and chin lacerations which were closed with sutures that will need to be removed in 7 to 10 days. As we discussed, please keep your wound clean, dry and covered. Please do not soak in a tub, swim or engage in any activities which could introduce dirt into your wound. You may return to the emergency department, go to urgent care or go to your primary care provider in 7 to 10 days to have your stitches removed. As we discussed if you develop any foul-smelling drainage fevers streaking signs of infection or have any other concerns please return to the emergency department. For your pain please take medications as follows: 1. Take acetaminophen (Tylenol), 1,000 mg (two 500 mg tabs) every 6 hours Discharge Data Discharge Date/Time-TO BE ENTERED AT DEPARTURE: 08/15/24 11:01 HPI General Date/Time Provider Initiated Documentation: 08/15/24 06:47 . HPI Narrative: MDM This is an overall well-appearing afebrile and not tachycardic 58-year-old female with syncope in setting of influenza positive. She is not short of breath and has no lower extremity edema to suggest acute heart failure. No black nor bloody stools to suggest GI bleed. Chest x-ray without pneumothorax. I spoke with Dr. Carrington from ophthalmology at [facility] at that is concerned for the possibility for lacrimal gland injury. He reviewed photos that I placed in the patient's [facility] EMR. He was not concerned for lacrimal gland injury and advised primary closure. Patient has not been vomiting to suggest increased risk for acute electrolyte abnormalities. Will obtain 2 sets of troponins. I considered ordering oseltamavir however patient has had URI symptoms for a week which certainly could have represented early influenza. Per Nexus criteria, cervical CT not obtained. The patient had no c-spine midline tenderness, no evidence of intoxication, was AAOx3, had no focal neurological deficits, and no painful distracting injuries. 3:45 PM Late charting due to patient care. Patient ambulated in the ED. She tolerated p.o. Her CT showed no sign of any bleeding or had no signs of any facial fractures. Chest x-ray negative for pneumothorax. We discussed that she should rest at home. Considered PE however the patient was not short of breath hypoxic nor tachycardic so did not order D-dimer. Patient requested discharge. Given that she ambulated in the ED and tolerated p.o. felt and appeared trial of discharge with expectant outpatient management was warranted. HPI This is a 58-year-old female brought in the emergency department via EMS following a fall in setting of influenza positive. Exam General: Well-appearing in no acute distress speaking in complete sentences. Head: Normocephalic, atraumatic. Eye:[Pupils equal, round reactive to light.] Extraocular eye movements intact. No conjunctival injection. No scleral icterus. Visual acuity 20/20 bilaterally 20/20 right eye. On the lateral aspect of the right eye just lateral and superior to the right eyelid and lateral to the right lateral canthus there is a approximately 3 cm laceration that violates subcutaneous tissue. No signs of entrapment. No afferent pupillary defect. No obvious involvement of lacrimal gland. Ear, nose, mouth, throat: Grossly normal inspection. Normal voice, handling secretions normally. Neck: Trachea midline. Cardiovascular: Well-perfused distal extremities. Respiratory: Nonlabored respiration. Clear lungs bilaterally. Gastrointestinal: Nondistended abdomen. Soft nontender. Musculoskeletal: No edema. Moving all 4 extremities spontaneously. Nontender bilateral upper and lower extremities. Skin: Normal for age and race, grossly normal temperature and turgor. No acute rash. Neurologic: Alert and appropriate, no apparent acute deficits.GCS 15. Psychiatric: Mood and manner are appropriate. Grooming and personal hygiene are appropriate. Related Data Home Medications ?Medication ?Instructions ?Recorded ?Confirmed calcium ER 600 mg (as carb,cit)-D3 1 ea PO DAILY 01/02/14 08/15/24 12.5 mcg (500 unit) tablet, ext.rel glucosamine MMp-J4-Maivzjvrq 1 ea PO DAILY 01/02/14 08/15/24 buster 1,500 mg-400 unit-100 mg tablet (Osteo Bi-Flex (5-Loxin)) multivitamin (Daily Multi-Vitamin 1 ea PO DAILY 01/02/14 08/15/24 tablet) cranberry tmtp-L-kfooowis coag 450 1 ea PO BID 04/10/16 08/15/24 mg-30 mg-50 million cell tablet (Mncgyfdfa-Zitspddht-Ifjjqtw C) krill 1,000 mg-omega-3 170 mg-dha 1 ea PO DAILY 04/10/16 08/15/24 50 mg-epa 80 jg-fbwcgk-sadwa capsule (krill oil) multivitamin,Ca,mineral-folic 400 mcg PO BID 04/10/16 08/15/24 acid-herbal no.157 400 mcg tablet (Estroven Maximum Strength) estradiol 0.01% (0.1 mg/gram) 1 g vaginal .COMPLEX #42.5 grams 06/06/20 08/15/24 vaginal cream turmeric 400 mg capsule 1,000 mg PO DAILY 10/01/20 08/15/24 ibuprofen 600 mg tablet 600 mg PO Q6H PRN 10/03/20 08/15/24 Acetaminophen [Tylenol] 1,000 mg PO Q6H PRN PRN #30 tabs 10/04/20 08/15/24 docusate sodium 100 mg capsule 100 mg PO BID PRN PRN Constipation 10/04/20 08/15/24 #30 caps prednisone 20 mg tablet 60 mg (3 x 20 mg) PO DAILY 4 days 08/14/24 08/15/24 #12 tabs Previous Rx's ?Medication ?Instructions ?Recorded estradiol 0.01% (0.1 mg/gram) 1 g vaginal .COMPLEX #42.5 grams 06/06/20 vaginal cream Acetaminophen [Tylenol] 1,000 mg PO Q6H PRN PRN #30 tabs 10/04/20 docusate sodium 100 mg capsule 100 mg PO BID PRN PRN Constipation 10/04/20 #30 caps prednisone 20 mg tablet 60 mg (3 x 20 mg) PO DAILY 4 days 08/14/24 #12 tabs Allergies Allergy/AdvReac Type Severity Reaction Status Date / Time oxycodone HCl (From Percocet) AdvReac Intermediate Nausea, Unverified 08/15/24 06:45 vomiting fabric softner Allergy Mild Skin Rash Uncoded 08/15/24 06:45 environmental Allergy Other (See Uncoded 08/15/24 06:45 Comment) General Stated Complaint: Fall/Non TraumaCriteria AARON: 3 Course Vital Signs Vital signs: Vital Signs Pulse 79 08/15/24 06:35 Pulse Oximetry 92 08/15/24 06:35 Temperature 35.1 C L 08/15/24 06:38 Temperature Source Tympanic 08/15/24 06:38 Pulse 69 08/15/24 06:53 Pulse 69 08/15/24 06:53 Respiratory Rate 17 08/15/24 06:53 Blood Pressure 112/52 L 08/15/24 06:38 Blood Pressure Position Supine 08/15/24 06:38 Pulse Oximetry 91 L 08/15/24 06:53 Oxygen Delivery Method Room Air 08/15/24 06:38 Oxygen Flow Rate 0 08/15/24 06:38 Pain Level 4 08/15/24 06:48 Procedure Laceration Laceration 1: Date of Procedure: 08/15/24 Time of procedure: 08:44 Provider that performed the procedure: Feng Mcwilliams Standard Time Out Performed: Yes Patient Consented: Verbally Site: face Side (If applicable): right Description: linear Depth: simple, single layer Local anesthetic: LET(lidocaine epinephrine tetracaine) Pre-repair:: wound explored and irrigated extensively Skin layer closed with: nylon Size (cm): 5-0 and 6-0 Number of sutures:: 5 Technique: simple, interrupted Procedure Description/Note: Right lateral face laceration involving edge of eyelid. Closed with 5-0 and 6-0 Prolene. Laceration 2: Date of Procedure: 08/15/24 Time of procedure: 08:46 Provider that performed the procedure: Feng Mcwilliams Patient Consented: Verbally Site: face (Chin) Description: linear Depth: simple, single layer Skin layer closed with: nylon Size (cm): 5-0 Number of sutures:: 2 Technique: simple, interrupted Medical Decision Making Quality:SDOH Health Related Social Needs: No Data to Display PFSH All Active Problems (Updated 08/15/24 @ 09:17 by Feng Mcwilliams MD) Facial laceration (Acute) Hx of falling (Acute) Cough (Acute) Influenza (Acute) Medical History Endometriosis History of postoperative nausea and vomiting Mixed incontinence bladder not where it is supposed to be Surgical History Hx of carpal tunnel repair Oophrectomy, Right (~07/2010) R salpingo oophrectomy,L ovarian cystectomy for bilateral endometiomas S/P appendectomy S/P laparoscopic assisted vaginal hysterectomy (LA[facility]) Family History Mother Dementia Father Heart disease Social History Smoking/Tobacco Use Status: Never Smoking risk assessment performed?: Yes Alcohol Intake: current Alcohol Intake frequency: holidays/special occasions only Drug use: Never Substance use type: does not use Do you feel safe at home: Yes Do you feel safe in your relationship?: Yes
--- NOTE | 2024-08-15 07:17 | DI.CT_ITS ---
Exam(s) CT HEAD FACIAL WO EXAM: CT HEAD FACIAL WO CLINICAL HISTORY: head strike loc. TECHNIQUE: Imaging Protocol: Axial computed tomography images with coronal and sagittal reformatted images were created and reviewed COMPARISON: No exams were available for comparison FINDINGS: CT Head: Ventricles and Extra axial spaces: Normal in size and morphology for the patient's age. Hemorrhage: None. Cerebral parenchyma: Normal. Midline shift: None. Brainstem/Cerebellum: Normal. Calvarium: Normal. Visualized Paranasal sinuses/Mastoids: Opacification ethmoid and left maxillary sinuses. Air-fluid l evel in right maxillary sinus. Mucous retention in right sphenoid sinus. Soft Tissues: Unremarkable. CT Face: Facial Bones: No fracture is noted in facial bones. Sinuses and Mastoids: Near complete opacification of the left maxillary sinus. Air-fluid level as w ell as mucous retention cyst in the right maxillary sinus. Opacification of multiple ethmoid air sada ls. Mucosal thickening of the nasal cavity. Mucous retention within the right sphenoid sinus. Smal l amount of mucosal thickening left sphenoid sinus. Globes, extraocular muscles, optic nerves and retrobulbar fat: Normal. Upper aerodigestive tract: Normal. Mandible and bilateral temporomandibular joints: No dislocation. Degenerative changes on the left. Soft tissues: Soft tissue swelling and small amount of air adjacent to the right zygoma. IMPRESSION: 1. No acute intracranial process. 2. No acute facial fracture. Sinus disease which may be acute on chronic. RADIATION DOSE DELIVERED: 1,327.55mGy.cm Total DLP DATA REPOSITORY: All CT scans at this facility are submitted to the National Radiology Data Registry (NRDR) Dose Index Registry (DIR) with the [employer] (A[employer]). RADIATION OPTIMIZATION: All CT scans at this facility use at least one of these dose optimization te chniques: automated exposure control; mA and/or kV adjustment per patient size (includes targeted exa ms where dose is matched to clinical indication); or iterative reconstruction.
[2024-08-15] MEDS: Diph,Pertuss(Acell),Tet Vac/Pf 0.5 ML SYR IM (07:18)
[2024-08-15] MEDS: Lidocaine/Epinephri/Tetracaine Topical Gel 3 ML TP (07:18)
--- NOTE | 2024-08-15 07:53 | DI.RAD_ITS ---
Exam(s) XR CHEST 1V IN DI DEPT EXAM: XR CHEST 1V IN DI DEPT CLINICAL HISTORY: fall TECHNIQUE: 2D digital imaging was performed. COMPARISON: No exams were available for comparison FINDINGS: LUNGS: Clear. No pleural abnormality seen. HEART: Normal size. AORTA: Normal diameter. BONES: Unremarkable for age. Soft tissues: Unremarkable. IMPRESSION: No acute findings. DATA REPOSITORY: RADIATION DOSE DELIVERED:
--- NOTE | 2024-08-15 08:06 | DI.VRAD_ITS ---
PROCEDURE INFORMATION: Exam: CT Head Without Contrast Exam date and time: 08/15/2024 7:41 AM; 08/15/2024 7:41 AM Age: 58 years old; 58 years old Clinical indication: Injury or trauma; Fall; Blunt trauma (contusions or hematomas); Orbit/periorbital; Right; Head strike loc, R face lac; Injury or trauma; Fall; Blunt trauma (contusions or hematomas); Orbit/periorbital; Right; Head strike loc, R face lac TECHNIQUE: Imaging protocol: Computed tomography of the head without contrast. COMPARISON: Comparison: No relevant prior studies are available for comparison. FINDINGS: Brain: No intracranial hemorrhage appreciated. No significant focal mass effect or significant midline shift. Ventricles: No disproportionate ventriculomegaly. Paranasal sinuses: CT scan of the facial bones dictated separately. IMPRESSION: 1. No intracranial sequelae of trauma appreciated. 2. Additional studies dictated separately. PROCEDURE INFORMATION: Exam: CT Maxillofacial Without Contrast Exam date and time: 08/15/2024 7:41 AM Age: 58 years old Clinical indication: Injury or trauma; Fall; Blunt trauma (contusions or hematomas); Orbit/periorbital; Right; Head strike loc, R face lac TECHNIQUE: Imaging protocol: Computed tomography of the face without contrast. COMPARISON: No relevant prior studies available. FINDINGS: Limitations: Artifact from metallic dental hardware obscures surrounding tissues. Bones: No acute facial bone fracture seen. Lymph nodes: Bilateral cervical lymph nodes. Paranasal sinuses: Mucosal thickening and hyperdense fluid in the maxillary sinuses bilaterally, suggesting complex/hemorrhagic component. Mucosal thickening in the ethmoid air cells. Mucosal thickening and fluid in the right sphenoid sinus. Soft tissues: Soft tissue swelling and gas in the right side of the face. IMPRESSION: 1. No acute facial bone fracture seen. 2. Sinus disease as above. Hyperdense fluid in the sinuses suggesting complex/hemorrhagic component. Occult fracture cannot be excluded. 3. Additional studies dictated separately. Dictated and Authenticated by: Yasmeen Cruz MD. Orderin Poppy Toney MD
--- NOTE | 2024-08-15 08:07 | DI.VRAD_ITS ---
PROCEDURE INFORMATION: Exam: XR Chest Exam date and time: 08/15/2024 7:43 AM Age: 58 years old Clinical indication: Injury or trauma; Other: Not specified; Injury date: 08/14/2024; S/P fall TECHNIQUE: Imaging protocol: Radiologic exam of the chest. Views: 1 view. COMPARISON: CR XR CHEST 2V PA LATERAL 08/14/2024 10:19 AM FINDINGS: Lungs: No focal consolidation seen. Pleural spaces: No large pleural effusion seen. Heart/Mediastinum: No cardiomegaly. Bones/joints: No acute abnormality. IMPRESSION: No acute findings to explain reported symptoms. Dictated and Authenticated by: Yasmeen Cruz MD. Orderin Poppy Toney MD
[2024-08-15 09:09] LABS: Abs Immature Grans 0.02 10^3/uL (0.0-0.06); Absolute Basophil Count 0.01 10^3/uL (0.0-0.2); Absolute Lymphocyte Count 0.41 10^3/uL (1.2-3.4); Absolute Monocyte Count 0.41 10^3/uL (0.1-0.8); Basophils % 0.2 %; HCT 34.6 % (36.0-46.0); HGB 12.1 g/dL (11.2-15.7); Immature Grans % 0.5 %; Lymphocytes % 9.4 %; MCH 30.6 pg (27.0-33.0); MCV 88 fL (80-95); MPV 9.9 fL (8.0-11.0); Monocytes % 9.4 %; Neutrophils % 80.5 %; Platelet Count 152 10^3/uL (130-400); RBC 3.95 10^6/uL (3.93-5.22); RDW 13.2 % (11.7-14.6); RDW-SD 42.5 fL; WBC 4.35 10^3/uL (4.4-10.8)
[2024-08-15 09:27] LABS: Anion Gap 5.9 mmol/L (3-11); BUN 11 mg/dL (7-18); CO2 27.1 mmol/L (21.0-32.0); CREATININE 0.5 mg/dL (0.55-1.02); Calcium 8.4 mg/dL (8.5-10.1); Chloride 102 mmol/L (98-107); Creatine Kinase 85 U/L (26-192); Estimated GFR 107.98 (mL/min/1.73m2); Glucose 112 mg/dL (74-106); Potassium 3.4 mmol/L (3.5-5.1); Sodium 135 mmol/L (136-145); Troponin I 10 ng/L (<or=51)
[2024-08-15 10:39] LABS: Troponin I 9 ng/L (<or=51)
== END 2024-08-15 11:01 | disposition home or self-care (01) ==
PROVIDERS: Emergency Provider Emergency Medicine; PCP Nurse Practitioner Family
DX: J10.1 Influenza due to other identified influenza virus with other respiratory manifestations (principal); R42 Dizziness and giddiness; S01.111A Laceration without foreign body of right eyelid and periocular area, initial encounter; S01.81XA Laceration without foreign body of other part of head, initial encounter; Z23 Encounter for immunization; W18.39XA Other fall on same level, initial encounter; Y93.89 Activity, other specified; Y92.018 Other place in single-family (private) house as the place of occurrence of the external cause
CPT/HCPCS: 12013; 80048; 82550; 90471; 90715; 93005; 99285; 70450; 70486; 71045; 84484; 85025; 93010; 99284

== ENCOUNTER 2025-01-24 16:28 | Outpatient (REF) | payer BC, SELFPAY ==
[2025-01-24 16:31] LABS: Calculated LDL 149 mg/dL (<100); Cholesterol 234 mg/dL (<200); HDL Cholesterol 78 mg/dL (>or=50); Triglyceride 36 mg/dL (<150)
== END 2025-01-24 16:29 | disposition home or self-care (01) ==
LOC: NCHCN 16:28
PROVIDERS: PCP Nurse Practitioner Family; Visit Provider Nurse Practitioner Family
DX: Z13.6 Encounter for screening for cardiovascular disorders (principal)
CPT/HCPCS: 80061

== ENCOUNTER 2025-01-31 01:51 | Outpatient (CLI) | payer BC, SELFPAY ==
--- NOTE | 2025-01-31 13:03 | DI.MAMMO_ITS ---
Exam(s) MAMMO SCREENING EXAM: MAMMO SCREENING CLINICAL HISTORY: SCREENING, Z12.31 TECHNIQUE: Mammograms were interpreted according to the usual protocol including computer analysis with CAD system, tomosynthesis and C-view imaging. COMPARISON: 2019 and 2021 FINDINGS: The breasts are composed of scattered fibroglandular densities, Breast Density category B. No suspicious masses or suspicious microcalcifications are seen. No skin thickening or abnormal axillary lymph nodes are seen. There has been no significant change from prior exams. IMPRESSION: BI-RADS Category 1, Negative mammogram Yearly screening mammography is recommended. Breast Density - Category B - There are scattered areas of fibroglandular density. Breast density Category C or D implies that the patient has dense breast tissue. Dense breast tissue can make it harder to find cancer on a mammogram. Dense breast tissue is also associated with an increased risk of breast cancer. This information about the result of the mammogram report was provided to the patient to raise their awareness. Use this report when you speak with the patient about their risks for breast cancer, which includes their family history. At that time, you may recommend additional screening tests (Ultrasound or MRI) as these tests may add significant information. A negative radiographic report should not delay biopsy if a dominant or clinically suspicious mass is present. Up to ten percent of cancers are not identified on mammography. A negative report may reinforce clinical impression. Adenosis and dense breasts may obscure an underlying neoplasm. False positive reports average 6 to 10%. Patient will receive a letter notifying them of these results.
== END 2025-01-31 02:11 ==
LOC: DI 01:51
PROVIDERS: PCP Nurse Practitioner Family; Visit Provider Nurse Practitioner Family
DX: Z12.31 Encounter for screening mammogram for malignant neoplasm of breast (principal); R92.323 Mammographic fibroglandular density, bilateral breasts
CPT/HCPCS: 77063; 77067